=== PATIENT | female | born 1930 | race Asian ===

== ENCOUNTER 2018-08-28 18:40 | Emergency (ER) | payer OTHER ==
[~2018-08-28] VITALS: Ht 144.8 cm; Wt 64.0 kg
[2018-08-28 19:15] VITALS: BP 133/69
--- NOTE | 2018-08-28 19:15 | NUR ---
Pt ambulated to bed 7 with assistance of daughter.
--- NOTE | 2018-08-28 19:42 | NUR ---
PT TO ED WITH C/O POSTERIOR HEAD PAIN S/P FALL X 1500 TODAY. PT FAMILY MEMBER REPORTS APPROX 5 SEC LOC. PT DENIES VOMITTING, VISUAL CHANGES. NO ACTIVE BLEEDING OR OBVIOUS TRAUMA NOTED. PT IS APPROPRAITE AND ANSWERING QUESTIONS NORMALLY. PT PLACED INTO BED, PEDNING MD WILCOX.
--- NOTE | 2018-08-28 20:04 | NUR ---
Dr. Mulligan evaluating patient at bedside.
--- NOTE | 2018-08-28 20:19 | NUR ---
PT RETURN FROM CT
[2018-08-28 21:03] VITALS: BP 125/72
--- NOTE | 2018-08-28 21:04 | NUR ---
Patient discharged with v/s stable. Written and verbal after care instructions given and explained. Patient alert, oriented and verbalized understanding of instructions. Ambulatory with steady gait. All questions addressed prior to discharge. ID band removed. Patient advised to follow up with PMD. Rx of Motrin 400mg given. Patient educated on indication of medication including possible reaction and side effects. Opportunity to ask questions provided and answered.
== END 2018-08-28 21:04 | disposition home or self-care (01) ==
LOC: MED 18:40
DX: S00.03XA Contusion of scalp, initial encounter (principal); I10 Essential (primary) hypertension; W19.XXXA Unspecified fall, initial encounter; Y93.89 Activity, other specified; Y92.89 Other specified places as the place of occurrence of the external cause; Y99.8 Other external cause status
CPT/HCPCS: 70450; 72125; 99284

== ENCOUNTER 2018-09-25 13:46 | Inpatient (IN) | payer OTHER ==
[~2018-09-25] VITALS: Ht 144.8 cm; Wt 62.1 kg
[2018-09-25 14:14] VITALS: BP 130/76
--- NOTE | 2018-09-25 14:45 | NUR ---
PT AMB TO BED 4
--- NOTE | 2018-09-25 14:51 | NUR ---
Note undone in EDM - 09/25/18 at 1741 by [facility] 88/F BIB DAUGHTER IN LAW C/O GENERALIZED WEAKNESS X 2 MONTHS WITH CONSTIPATION & MID ABD PAIN X 1 MONTH AND NAUSEA.PMH: BLIND IN RIGHT EYE. PATIENT POSITIONED FOR COMFORT; HOB ELEVATED; BEDRAILS UP X1; BED DOWN. ER MADE AWARE OF PT STATUS.
--- NOTE | 2018-09-25 14:51 | NUR ---
88/F BIB DAUGHTER IN LAW C/O GENERALIZED WEAKNESS, MOOD CHANGES X 2 MONTHS WITH CONSTIPATION & MID ABD PAIN X 1 MONTH AND NAUSEA.PMH: HTN,BLIND IN LEFT EYE, [place], HYSTERECTOMY. PATIENT POSITIONED FOR COMFORT; HOB ELEVATED; BEDRAILS UP X1; BED DOWN. JOSE DUENAS MADE AWARE OF PT STATUS. Addendum: 09/25/18 at 1744 by [facility] PT LIVES IN [facility] IN [place].
[2018-09-25] MEDS ORDERED: LACTATED RINGERS 1,000 ML IV ONE (15:00)
--- NOTE | 2018-09-25 15:28 | NUR ---
PT TAKEN TO CT VIA GUJORDYN, ACCOMPANIED BY TRACK HOE OPERATOR.
[2018-09-25 15:31] LABS: APPEARANCE,URINE CLEAR (CLEAR); BILIRUBIN,URINE NEGATIVE (NEGATIVE); BLOOD, URINE TRACE-I (NEGATIVE); COLOR,URINE YELLOW (YELLOW); LEUKOCYTE ESTERASE ,URINE NEGATIVE (NEGATIVE); NITRITE, URINE NEGATIVE (NEGATIVE); UGLUCOSE NEGATIVE (NEGATIVE)
[2018-09-25 15:31] LABS: BASOPHILS % (AUTO) 0.6 % (0.0-2.0); EOSINOPHILS # (AUTO) 0.1 K/uL (0-0.4); EOSINOPHILS % (AUTO) 0.8 % (0.0-4.0); HEMATOCRIT 39.5 % (36-48); HEMOGLOBIN 13.4 g/dL (12.0-16.0); LYMPHOCYTES # (AUTO) 0.9 K/uL (2.5-16.5); LYMPHOCYTES % (AUTO) 14.2 % (20.5-51.1); MEAN CORPUSCULAR HEMOGLOBIN 33 pg (27-31); MEAN CORPUSCULAR HGB CONC 34 g/dL (33-37); MEAN CORPUSCULAR VOLUME 96.8 fL (80-94); MONOCYTES # (AUTO) 0.4 K/uL (0.8-1.0); MONOCYTES % (AUTO) 7.2 % (1.7-9.3); NEUTROPHILS # (AUTO) 4.7 K/uL (1.8-7.7); NEUTROPHILS % (AUTO) 77.2 % (42.2-75.2); PLATELET COUNT (AUTO) 230 K/uL (140-450); RED BLOOD CELL COUNT(AUTO) 4.08 MIL/uL (4.20-5.40); RED CELL DISTRIBUTION WIDTH 12.9 % (11.6-13.7)
[2018-09-25] MEDS ORDERED: AMLO10TA PO (15:49)
[2018-09-25] MEDS ORDERED: ORE25 PO (15:49)
[2018-09-25 16:33] LABS: ALBUMIN 3.5 g/dL (3.4-5.0); ANION GAP 9.7 (8-16); ASPARTATE AMINOTRANSFERASE 20 U/L (15-37); CARBON DIOXIDE 31.1 mmol/L (21-32); CHLORIDE 94 mmol/L (98-107); CREATININE 0.7 mg/dL (0.6-1.3); POTASSIUM 3.8 mmol/L (3.5-5.1); SODIUM SERUM 131 mmol/L (136-145); TOTAL BILIRUBIN 0.7 mg/dL (0.0-1.0); UREA NITROGEN, BLOOD 8 mg/dL (7-18)
[2018-09-25 16:48] LABS: ACETONE, SERUM NEGATIVE (NEGATIVE); AMYLASE 39 U/L (25-115); LIPASE 187 U/L (73-393); MAGNESIUM 2.3 mg/dL (1.8-2.4)
[2018-09-25 16:50] LABS: GLUCOSE 108 mg/dL (74-106)
--- NOTE | 2018-09-25 17:45 | NUR ---
DAUGHTER IN LAW; YOUNG [phone]
[2018-09-25] MEDS ORDERED: ONDANSETRON 4 MG/2 ML VIAL IM/IVP PRN (17:55)
[2018-09-25] MEDS ORDERED: ACETAMINOPHEN 325 MG TAB PO PRN (17:55)
[2018-09-25] MEDS ORDERED: HYDROcodone/APAP 7.5/325 MG 1 TAB PO PRN (17:55)
--- NOTE | 2018-09-25 17:55 | NUR ---
called electrical discharge machine operator ingrid she will call back with bed
--- NOTE | 2018-09-25 18:36 | NUR ---
Patient will be admitted to care of DR TOLEDO. Admited to MS. Will go to room 123B. Belongings list completed. Report to NAIF JOHN.
--- NOTE | 2018-09-25 18:36 | NUR ---
PT ARRIVED ON UNIT. RECEIVED REPORT FROM [facility] ER NURSE. PT IS STABLE AND AMBULATED TO THE BATH ROOM. TOOK PTS VITALS 90/66 98.0 96% ROOM AIR. 92 HR. TOOK MRSA. FAMILY AT PATIENTS BEDSIDE.
[2018-09-25 18:52] LABS: PROTHROMBIN TIME 9.4 secs (10.8-13.4)
[2018-09-25 19:03] LABS: CHOL/HDL RATIO 2.9 (1-4.5); FREE T4 (FREE THYROXINE) 1.05 ng/dL (0.76-1.46); PHOSPHORUS 3.6 mg/dL (2.5-4.9); THYROID STIMULATING HORMONE 2.35 uIU/mL (0.34-3.74)
[2018-09-25] MEDS ORDERED: BENZONATATE 100 MG CAPLF PO PRN (19:05)
--- NOTE | 2018-09-25 19:20 | NUR ---
ENDORSED ADMISSION/PT TO FIRE MANAGEMENT OFFICER NURSE. PT IS STABLE AND IN NO APPARENT DISTRESS.
--- NOTE | 2018-09-25 19:22 | NUR ---
RECEIVED REPORT FROM DAY SHIFT RN. FAMILY AT BEDSIDE. NO SIGNS OF DISTRESS ON RA. SAFETY PRECAUTIONS IN PLACE. ORIENTED PATIENT TO ROOM AND UNIT. CALL LIGHT IN REACH. WILL CONTINUE TO MONITOR.
[2018-09-25 19:30] VITALS: BP 90/66
[2018-09-25] MEDS ORDERED: ASPIRIN 81 MG TAB.CHEW PO SCH (19:30)
--- NOTE | 2018-09-25 20:35 | NUR ---
PATIENT C/O BEING COLD. ADJUSTED TEMPERATURE IN ROOM, PROVIDED BLANKET. POSITIONED PATIENT COMFORTABLY IN BED. WILL CONTINUE TO MONITOR.
[2018-09-25] MEDS ORDERED: POLYETHYLENE GLYCOL 17 GM/PKT PO SCH (21:30)
--- NOTE | 2018-09-25 22:45 | NUR ---
PATIENT STILL C/O COLD, PROVIDED ADDITIONAL BLANKET, FURTHER INCREASED TEMPERATURE IN ROOM. WILL CONTINUE TO MONITOR.
[2018-09-26] VITALS: BP 98/63
--- NOTE | 2018-09-26 | NUR ---
PATIENT SLEEPING. BED LOW. CALL LIGHT IN REACH. NO SIGNS OF DISTRESS ON RA. WILL CONTINUE TO MONITOR.
[2018-09-26] MEDS: NACL 0.9% 1,000 ML IV SCH ×2 (00:15→10:52)
--- NOTE | 2018-09-26 02:30 | NUR ---
PATIENT AMBULATED TO BATHROOM, ASSISTED PATIENT BACK TO BED, POSITIONED FOR COMFORT. NO SIGNS OF DISTRESS. SAFETY PRECAUTIONS IN PLACE.
--- NOTE | 2018-09-26 03:57 | NUR ---
PATIENT SLEEPING. PRECAUTIONS IN PLACE, NO SIGNS OF DISTRESS. WILL CONTINUE TO MONITOR.
--- NOTE | 2018-09-26 05:36 | NUR ---
PATIENT IV BECAME DISLODGED AND IS LEAKING. WILL DISCONTINUE AND INSERT NEW IV IN DIFFERENT LOCATION.
[2018-09-26 06:13] LABS: T4 (THYROXINE) 6.1 ug/dL (4.5-12.0)
--- NOTE | 2018-09-26 06:19 | NUR ---
SCDS ARRIVED, NOT APPLIED. PATIENT IS UP AND DOWN, IN AND OUT OF BED. VERY ACTIVE.
[2018-09-26 06:39] LABS: BASOPHILS % (AUTO) 0.4 % (0.0-2.0); EOSINOPHILS # (AUTO) 0.1 K/uL (0-0.4); EOSINOPHILS % (AUTO) 1.7 % (0.0-4.0); HEMATOCRIT 37.1 % (36-48); LYMPHOCYTES # (AUTO) 0.9 K/uL (2.5-16.5); LYMPHOCYTES % (AUTO) 16.8 % (20.5-51.1); MEAN CORPUSCULAR HEMOGLOBIN 34 pg (27-31); MEAN CORPUSCULAR HGB CONC 35 g/dL (33-37); MEAN CORPUSCULAR VOLUME 95.7 fL (80-94); MONOCYTES # (AUTO) 0.4 K/uL (0.8-1.0); MONOCYTES % (AUTO) 7.7 % (1.7-9.3); NEUTROPHILS # (AUTO) 4.1 K/uL (1.8-7.7); NEUTROPHILS % (AUTO) 73.4 % (42.2-75.2); PLATELET COUNT (AUTO) 210 K/uL (140-450); RED BLOOD CELL COUNT(AUTO) 3.88 MIL/uL (4.20-5.40); RED CELL DISTRIBUTION WIDTH 13.1 % (11.6-13.7); WHITE BLOOD COUNT (AUTO) 5.6 K/uL (4.8-10.8)
[2018-09-26 06:40] LABS: ANION GAP 11.7 (8-16); CARBON DIOXIDE 29.9 mmol/L (21-32); CHLORIDE 100 mmol/L (98-107); CREATININE 0.7 mg/dL (0.6-1.3); GLUCOSE 99 mg/dL (74-106); POTASSIUM 3.6 mmol/L (3.5-5.1); SODIUM SERUM 138 mmol/L (136-145); UREA NITROGEN, BLOOD 9 mg/dL (7-18)
--- NOTE | 2018-09-26 07:41 | NUR ---
ENDORSED PATIENT TO DAY SHIFT RN FOR CONTINUITY OF CARE. PATIENT STABLE, SAFETY PRECAUTIONS IN PLACE.
--- NOTE | 2018-09-26 07:42 | NUR ---
RECEIVED BEDSIDE REPORT FROM AG EQUIPMENT FIELD SERVICE TECHNICIAN NURSE FOR CONTINUITY OF CARE. PATIENT IS AOX2, SPEAKING OCCITAN ONLY. ABLE TO MAKE NEEDS KNOWN AND FOLLOWS COMMAND. DENIES PAIN AND SOB. RESPIRATION EVEN AND UNLABORED. ON RA. NO SIGNS OF DISTRESS NOTED. IV ON LFA 22G, PATENT AND INTACT, INFUSING PER MD ORDER. SKIN CLEAN AND DRY. PATIENT IS ABLE TO AMBULATE WITH ASSIST AND CONTINENT. DISCUSSED PLAN OF CARE WITH PATIENT AND PATIENT VERBALIZED OK. FALL PRECAUTION INITIALED AND SIGN POSTED. PATIENT REFUSED TO WEAR YELLOW GOWN, YELLOW SOCKS, AND SEQUENTIAL COMPRESSION SOCKS. EDUCATION PROVIDED TO PATIENT, AND PATIENT WAS INSISTED NOT WEARING THEM. INSTRUCTED PATIENT TO USE THE CALL LIGHT FOR ANY ASSISTANCE AND PATIENT WAS AWARE. BED IN LOW POSITION AND CALL LIGHT WITHIN REACH.
[2018-09-26 08:00] VITALS: BP 112/62
--- NOTE | 2018-09-26 08:29 | NUR ---
PATIENT HAS BEEN SCREENED AND CATEGORIZED MODERATE NUTRITION RISK. PATIENT WILL BE SEEN WITHIN 3-5 DAYS OF ADMISSION. 09/28/18[address]ADELE[address]
[2018-09-26] MEDS ORDERED: POLYETHYLENE GLYCOL 17 GM/PKT PO SCH (09:00)
--- NOTE | 2018-09-26 09:30 | NUR ---
PATIENT'S FAMILY MEMBERS ARE AT BEDSIDE. EDUCATED PATIENT AND FAMILY MEMBER THE IMPORTANCE OF WEARING THE SEQUENTIAL COMPRESSION SOCKS, AND CHANGE INTO YELLOW GOWN AND YELLOW NON-SLIPPING SOCKS. DAUGHTER YOUNG SPOKE TO PATIENT AND PATIENT WAS REFUSED TO WEAR ALL OF THEM.
[2018-09-26] MEDS: ASPIRIN 81 MG TAB.CHEW PO SCH (09:38)
[2018-09-26] MEDS: amLODIPine 5 MG TAB PO SCH (09:38)
[2018-09-26] MEDS: DOCUSATE SODIUM 250 MG GELCAP PO SCH (09:39)
--- NOTE | 2018-09-26 09:39 | NUR ---
ADMINISTERED MEDS PER MD ORDER, PATIENT TOLERATED WELL. FAMILY MEMBERS DION AND DIYA ARE AT BEDSIDE. EDUCATED PATIENT AND FAMILY MEMBERS ON MEDICATIONS AND MEDICATIONS SIDE EFFECTS. BOTH VERBALIZED UNDERSTANDING. PATIENT IS SITTING UP CHAIR. NO SIGNS OF DISTRESS NOTED. SAFETY MEASURES IN PLACE. INSTRUCTED PATIENT AND FAMILY MEMBERS ON USING CALL LIGHT FOR ANY ASSISTANCE AND BOTH ARE AWARE.
--- NOTE | 2018-09-26 11:14 | NUR ---
PATIENT IS WATCHING TV ON BED. NO SIGNS OF DISTRESS NOTED. REFUSED TO WEAR YELLOW SOCKS, GOWN, AND SEQUENTIAL COMPRESSION DEVICE. BED ALARM ACTIVATED. INSTRUCTED PATIENT TO USE THE CALL LIGHT FOR ANY ASSISTANCE AND PATIENT REPLIED OK. SAFETY MEASURES IN PLACE.
--- NOTE | 2018-09-26 11:44 | NUR ---
PATIENT IS TALKING TO VISITOR SOCO AT BEDSIDE. NO SIGNS OF DISTRESS NOTED.
--- NOTE | 2018-09-26 13:06 | NUR ---
PATIENT IS SITTING UP ON EDGE OF BED AND EATING LUNCH. DENIES PAIN AND SOB. NO SIGNS OF DISTRESS NOTED. INSTRUCTED PATIENT TO USE THE CALL LIGHT FOR ANY ASSISTANCE AND PATIENT REPLIED "OK".
--- NOTE | 2018-09-26 13:36 | NUR ---
LEATHER BELT SHAPER BRITTANY IS AT BEDSIDE. NO SIGNS OF DISTRESS NOTED.
--- NOTE | 2018-09-26 15:03 | NUR ---
PATIENT IS TALKING TO DAUGHTER IN LAW YOUNG AT BEDSIDE. PATIENT COMPLAINED OF SWALLOWING DISCOMFORT. NOTIFIED DR HARVEY AND DR HARVEY WAS AWARE.
--- NOTE | 2018-09-26 15:10 | NUR ---
DR AHRVEY IS AT BEDSIDE AND ASSESSING PATIENT. DAUGHTER IN LAW YOUNG IS AT BEDSIDE. NO SIGNS OF DISTRESS NOTED.
--- NOTE | 2018-09-26 15:20 | NUR ---
SPEECH THERAPIST JEN IS TALKING TO PATIENT AND DAUGHTER IN LAW YOUNG AT THIS TIME. NO SIGNS OF DISTRESS NOTED.
--- NOTE | 2018-09-26 15:56 | NUR ---
Pet Training Instructor Note: I faxed inquiry to [facility]. Per Simone from [facility] , patient's family toured facility prior hospital admission and stated they are interested in society editor placement. Simone told me they can accept patient on Saturday09/28/18, room 28B, accepting physician is , made aware.
[2018-09-26 16:00] VITALS: BP 103/58
--- NOTE | 2018-09-26 16:02 | NUR ---
S.T. BEDSIDE SWALLOW EVAL COMPLETED Pt presents with adequate oropharyngeal swallow function with no overt s/s aspiration. However, pt did demonstrate delayed coughing and c/o throat irritation approx. 5 minutes after completion of P.O. trials. Suspect possible esopheageal return/dysmotility. Recommend: 1) Continue diet as tolerated, avoiding highly acidic foods such as caffeinated beverages, citrus and tomato-based foods 2) Consider upper GI/esophagram to r/o esophageal dysmotility 3) P.O. meds as tolerated No further ST tx indicated at this time. [facility]. D/w pt, [id number], Dr. Workman, RN Maryan. Time [phone]
--- NOTE | 2018-09-26 17:24 | NUR ---
PATIENT IS SITTING UP ON THE EDGE OF BED AND EATING GRAPES. DENIES PAIN AND SOB. NO SIGNS OF DISTRESS NOTED.
--- NOTE | 2018-09-26 19:28 | NUR ---
ENDORSED PATIENT AT BEDSIDE TO INSOLE AND HEEL STIFFENER FOR CONTINUITY OF CARE. PATIENT IS IN A STABLE CONDITION.
--- NOTE | 2018-09-26 19:30 | NUR ---
RECEIVED REPORT FROM DAY SHIFT RN, PATIENT CZECH SPEAKING, ON RA, IV IN LEFT FA 22 G, INFUSING NS AT 60. PATIENT WANDERING AROUND UNIT, INSTRUCTED TO GO BACK TO ROOM, CALLED FAMILY TO ASK IF SOMEONE CAN STAY WITH HER TONIGHT, NO ONE CAN COME, ASSISTED BACK INTO BED, BED ALARM ON, WILL PROVIDE FREQ CHECKS.
--- NOTE | 2018-09-26 20:00 | NUR ---
PATIENT CONTINUING TO WANDER AROUND HALLWAYS, ASSISTED BACK INTO BED, BED ALARM ON WILL CONTINUE TO MONITOR
--- NOTE | 2018-09-26 20:30 | NUR ---
PATIENT SCREAMING AND AGITATED, WILL CALL DR FOR ORDERS
[2018-09-26] MEDS: FAMOTIDINE 20 MG TAB PO SCH (20:39)
[2018-09-26] MEDS: DOCUSATE SODIUM 100 MG GELCAP PO PRN (20:40)
--- NOTE | 2018-09-26 20:40 | NUR ---
ASKED DR MARTINES FOR ORDER FOR SEROQUEL TO HELP PATIENT BE LESS AGITATED. GAVE SEROQUEL
[2018-09-26] MEDS ORDERED: QUEtiapine FUMARATE 25 MG TAB PO SCH (21:00)
[2018-09-26] MEDS ORDERED: diphenhydrAMINE 50 MG/ML VIAL IVP PRN (21:05)
--- NOTE | 2018-09-26 23:56 | NUR ---
PATIENT RESTING IN BED, CALL LIGHT WITHIN REACH, BED ALARM ON
[2018-09-27 01:00] VITALS: BP 113/61
--- NOTE | 2018-09-27 01:33 | NUR ---
SLEEPING IN BED NO SIGNS OF DISTRESS, BED ALARM ON
[2018-09-27] MEDS: NACL 0.9% 1,000 ML IV SCH ×2 (03:11→19:51)
--- NOTE | 2018-09-27 03:14 | NUR ---
OTHER IV STILL INFUSING WILL HANG ANOTHER BAG ONCE COMPLETED
--- NOTE | 2018-09-27 05:24 | NUR ---
ASSISTED PATIENT TO RESTROOM, HELPED BACK INTO BED, BED ALARM ON
--- NOTE | 2018-09-27 07:15 | NUR ---
ENDORSED PATIENT TO DAY SHIFT NURSE, PATIENT STABLE.
--- NOTE | 2018-09-27 07:17 | NUR ---
RECEIVED BEDSIDE REPORT FROM PHARMACOLOGY TEACHER NURSE FOR CONTINUITY OF CARE. PATIENT IS SITTING UP ON THE EDGE OF BED. PATIENT IS AOX2 TO NAME AND PLACE, SPEAKING SPANISH ONLY. ABLE TO MAKE NEEDS KNOWN AND FOLLOWS COMMAND. DENIES PAIN AND SOB. RESPIRATION EVEN AND UNLABORED. ON RA. NO SIGNS OF DISTRESS NOTED. IV ON L HAND 20G, PATENT AND INTACT, INFUSING PER MD ORDER. SKIN CLEAN AND DRY. PATIENT IS ABLE TO AMBULATE WITH ASSIST AND CONTINENT. DISCUSSED PLAN OF CARE WITH PATIENT AND PATIENT VERBALIZED OK. FALL PRECAUTION INITIALED AND SIGN POSTED. PATIENT REFUSED TO WEAR YELLOW GOWN, YELLOW SOCKS, AND SEQUENTIAL COMPRESSION SOCKS. EDUCATION PROVIDED TO PATIENT, AND PATIENT WAS INSISTED NOT WEARING THEM. INSTRUCTED PATIENT TO USE THE CALL LIGHT FOR ANY ASSISTANCE AND PATIENT WAS AWARE. BED IN LOW POSITION AND CALL LIGHT WITHIN REACH.
[2018-09-27 08:00] VITALS: BP 124/61
[2018-09-27 08:12] LABS: ANION GAP 11.1 (8-16); BASOPHILS % (AUTO) 0.6 % (0.0-2.0); CARBON DIOXIDE 29.7 mmol/L (21-32); CHLORIDE 105 mmol/L (98-107); CREATININE 0.6 mg/dL (0.6-1.3); EOSINOPHILS # (AUTO) 0.1 K/uL (0-0.4); EOSINOPHILS % (AUTO) 2.3 % (0.0-4.0); GLUCOSE 96 mg/dL (74-106); HEMATOCRIT 38.2 % (36-48); HEMOGLOBIN 13.1 g/dL (12.0-16.0); LYMPHOCYTES # (AUTO) 0.9 K/uL (2.5-16.5); LYMPHOCYTES % (AUTO) 20.4 % (20.5-51.1); MEAN CORPUSCULAR HEMOGLOBIN 33 pg (27-31); MEAN CORPUSCULAR HGB CONC 34 g/dL (33-37); MEAN CORPUSCULAR VOLUME 96.4 fL (80-94); MONOCYTES # (AUTO) 0.4 K/uL (0.8-1.0); MONOCYTES % (AUTO) 8.2 % (1.7-9.3); NEUTROPHILS # (AUTO) 3.1 K/uL (1.8-7.7); NEUTROPHILS % (AUTO) 68.5 % (42.2-75.2); PLATELET COUNT (AUTO) 213 K/uL (140-450); POTASSIUM 3.8 mmol/L (3.5-5.1); RED BLOOD CELL COUNT(AUTO) 3.96 MIL/uL (4.20-5.40); RED CELL DISTRIBUTION WIDTH 13.3 % (11.6-13.7); SODIUM SERUM 142 mmol/L (136-145); UREA NITROGEN, BLOOD 7 mg/dL (7-18); WHITE BLOOD COUNT (AUTO) 4.6 K/uL (4.8-10.8)
[2018-09-27 08:15] LABS: MAGNESIUM 2.2 mg/dL (1.8-2.4); PHOSPHORUS 2.9 mg/dL (2.5-4.9)
[2018-09-27] MEDS: ASPIRIN 81 MG TAB.CHEW PO SCH (09:34)
[2018-09-27] MEDS: DOCUSATE SODIUM 250 MG GELCAP PO SCH (09:34)
[2018-09-27] MEDS: amLODIPine 5 MG TAB PO SCH (09:35)
--- NOTE | 2018-09-27 09:35 | NUR ---
PATIENT IS TALKING TO FAMILY MEMBERS MARIO AND LEELEE AT BEDSIDE. ADMINISTERED AM MEDS PER MD ORDER, PATIENT TOLERATED WELL. NO SIGNS OF DISTRESS NOTED.
[2018-09-27] MEDS ORDERED: BISACODYL 10 MG SUPP RC PRN (10:20)
[2018-09-27] MEDS ORDERED: MINERAL OIL 135 ML ENEM RC SCH (10:20)
[2018-09-27] MEDS ORDERED: PSYLLIUM 12.2 GM/PKT PO SCH (10:45)
--- NOTE | 2018-09-27 11:02 | NUR ---
PATIENT IS FEELING CONSTIPATED. NOTIFIED DR MURPHY THAT PATIENT'S LAST BM WAS ON 09/[address] MURPHY PLACED AN ONCE TIME ORDER FOR PSYLLIUM. ADMINISTERED PSYLLIUM WITH WATER, PATIENT TOLERATED WELL. PATIENT IS SITTING UP ON BED. NO SIGNS OF DISTRESS NOTED. INSTRUCTED PATIENT TO USE THE CALL LIGHT FOR ANY ASSISTANCE AND PATIENT AWARE.
--- NOTE | 2018-09-27 11:45 | NUR ---
PATIENT IS SITTING UP ON BED AND TALKING ON HER CELLPHONE. NO SIGNS OF DISTRESS NOTED.
--- NOTE | 2018-09-27 13:07 | NUR ---
PATIENT IS TAKING A NAP ON BED AT THIS TIME. NO SIGNS OF DISTRESS NOTED. BED IN LOW POSITION AND CALL LIGHT WITHIN REACH.
--- NOTE | 2018-09-27 15:31 | NUR ---
DR MURPHY IS TALKING TO PATIENT AT BEDSIDE. NO SIGNS OF DISTRESS NOTED.
[2018-09-27] MEDS ORDERED: BENZOCAINE/MENTHOL 1 LOZ MM PRN (15:40)
--- NOTE | 2018-09-27 15:49 | NUR ---
ADMINISTERED DULCOLAX FOR CONSTIPATION. PATIENT TOLERATED WELL. NO SIGNS OF DISTRESS NOTED.
[2018-09-27 16:00] VITALS: BP 133/74
--- NOTE | 2018-09-27 16:15 | NUR ---
PATIENT HAD MEDIUM BOWEL MOVEMENT AFTER DULCOLAX.
--- NOTE | 2018-09-27 17:20 | NUR ---
PATIENT IS RESTING ON BED AT THIS TIME. NO SIGNS OF DISTRESS NOTED.
[2018-09-27] MEDS ORDERED: MELATONIN 3 MG TAB PO PRN (17:45)
--- NOTE | 2018-09-27 18:45 | NUR ---
PATIENT IS TALKING TO DAUGHTER IN LAW YOUNG AT BEDSIDE. NO SIGNS OF DISTRESS NOTED.
--- NOTE | 2018-09-27 19:22 | NUR ---
ENDORSED PATIENT AT BEDSIDE TO RENAL CASE MANAGER NURSE FOR CONTINUITY OF CARE. PATIENT IS IN STABLE CONDITION.
--- NOTE | 2018-09-27 19:23 | NUR ---
RECEIVED PT IN STABLE CONDITION FROM AM NURSE. AWAKE,ALERT AND ORIENTED X304. AMBULATORY. WITH FAMILY MEMBERS AT BEDSIDE. NO C/O ANY DISCOMFORT NOR PAIN NOTED. HAS IVF INFUSING WELL ON THE LT FA G#20. CLEAR AND PATENT. PLAN OF CARE DISCUSSED WITH FAMILY /PT. VERBALIZED UNDERSTANDING. BED ON LOW POSITION. FREQUENT ROUNDS NEEDED. CALL LIGHT PLACED WITHIN REACH. PERSONAL BELONGINGS ALSO IN REACH. SIDE RAILS UP X2. WILL CONTINUE TO MONITOR.
--- NOTE | 2018-09-27 20:00 | NUR ---
PT HAS BEEN GOING BACK TO N BATHROOM AND BED. IV DISCONNECTED. DAUGHTER STILL AT BEDSIDE.
[2018-09-27] MEDS: FAMOTIDINE 20 MG TAB PO SCH (20:22)
--- NOTE | 2018-09-27 21:00 | NUR ---
DAUGHTER LEFT FEW MINUTES AGO. PT NOW BACK TO BED. WITH IVF INFUSING AGAIN ON THE LT FD g#20.
[2018-09-27 23:50] VITALS: BP 133/50
--- NOTE | 2018-09-28 00:05 | NUR ---
IV ACCESS ON THE LT HAND #20 LEAKING. DISCONTINUED. A NEW IV SITE STARTED ON THE RT HAND G#22. CLEAR AND PATENT.
--- NOTE | 2018-09-28 01:00 | NUR ---
IVF DISCONTINUED. BUT PT REFUSED TO DISCONNECT IV. IVF ON TKO AT THIS TIME.
--- NOTE | 2018-09-28 02:00 | NUR ---
PT IS ASLEEP . NO S/S OF ANY DISCOMFORT NOTED.
--- NOTE | 2018-09-28 04:30 | NUR ---
PT IS AWAKE. GOT UP TO THE BATHROOM.VOIDED. NO DISCOMFORT NOTED.
--- NOTE | 2018-09-28 06:00 | NUR ---
PT UP TO THE BATHROOM AGAIN. VOIDED WELL.
--- NOTE | 2018-09-28 07:05 | NUR ---
WILL ENDORSE PT TO AM NURSE IN STABLE CONDITION FOR CONTINUITY OF CARE
--- NOTE | 2018-09-28 07:15 | NUR ---
RECEIVED HAND OFF REPORT FROM PATTERN CHANGER AND REPAIRER NURSE. PT IS AWAKE IN BED. PT IS STABLE AND IN NO APPARENT DISTRESS. ALL SAFETY MEASURES ARE IN PLACE WILL CONTINUE TO MONITOR.
[2018-09-28 08:00] VITALS: BP 149/71
[2018-09-28] MEDS ORDERED: PSYLLIUM 12.2 GM/PKT PO SCH (09:00)
[2018-09-28] MEDS ORDERED: POLYETHYLENE GLYCOL 17 GM/PKT PO SCH (09:00)
[2018-09-28 09:20] LABS: BASOPHILS % (AUTO) 0.6 % (0.0-2.0); EOSINOPHILS # (AUTO) 0.1 K/uL (0-0.4); HEMATOCRIT 39.7 % (36-48); HEMOGLOBIN 13.6 g/dL (12.0-16.0); LYMPHOCYTES # (AUTO) 0.9 K/uL (2.5-16.5); LYMPHOCYTES % (AUTO) 16.1 % (20.5-51.1); MEAN CORPUSCULAR HEMOGLOBIN 33 pg (27-31); MEAN CORPUSCULAR HGB CONC 34 g/dL (33-37); MEAN CORPUSCULAR VOLUME 96.7 fL (80-94); MONOCYTES # (AUTO) 0.3 K/uL (0.8-1.0); MONOCYTES % (AUTO) 5.1 % (1.7-9.3); NEUTROPHILS # (AUTO) 4.4 K/uL (1.8-7.7); NEUTROPHILS % (AUTO) 76.2 % (42.2-75.2); PLATELET COUNT (AUTO) 229 K/uL (140-450); RED CELL DISTRIBUTION WIDTH 13.3 % (11.6-13.7); WHITE BLOOD COUNT (AUTO) 5.7 K/uL (4.8-10.8)
--- NOTE | 2018-09-28 09:30 | NUR ---
PT AWAKE WALKING AROUND UNIT. PT ASKING ABOUT IV. PT ASKING FOR HER FAMILY. PT IS STABLE AND IN NO APPARENT DISTRESS. ALL SAFETY MEASURES ARE IN PLACE. WILL CONTINUE TO MONITOR.
[2018-09-28] MEDS: ASPIRIN 81 MG TAB.CHEW PO SCH (09:40)
[2018-09-28] MEDS: DOCUSATE SODIUM 100 MG GELCAP PO PRN (09:40)
[2018-09-28] MEDS: DOCUSATE SODIUM 250 MG GELCAP PO SCH (09:41)
[2018-09-28] MEDS: amLODIPine 5 MG TAB PO SCH (09:41)
[2018-09-28] MEDS ORDERED: METPCK PO (09:52)
[2018-09-28] MEDS ORDERED: BENZ1LOZ93 MM (09:52)
[2018-09-28] MEDS ORDERED: BENZ100C6 PO (09:52)
[2018-09-28] MEDS ORDERED: DOCU-299 PO (09:52)
[2018-09-28] MEDS ORDERED: MELA3TAB PO (09:52)
[2018-09-28 09:54] LABS: ANION GAP 12.7 (8-16); CARBON DIOXIDE 26.8 mmol/L (21-32); CHLORIDE 102 mmol/L (98-107); CREATININE 0.7 mg/dL (0.6-1.3); GLUCOSE 154 mg/dL (74-106); POTASSIUM 3.5 mmol/L (3.5-5.1); SODIUM SERUM 138 mmol/L (136-145); UREA NITROGEN, BLOOD 8 mg/dL (7-18)
--- NOTE | 2018-09-28 11:15 | NUR ---
PT RESTING COMFORTABLY IN BED. PT IS STABLE AND APPEARS IN NO APPARENT DISTRESS. ALL SAFETY MEASURES ARE IN PLACE. WILL CONTINUE TO MONITOR.
--- NOTE | 2018-09-28 11:32 | NUR ---
PER [facility] NURSE HAILEY, PT WILL GO TO 28B, [facility] ARR[facility]ED FOR [phone] PER ANAMIKA [phone]
--- NOTE | 2018-09-28 13:30 | NUR ---
PT READY FOR TRANSPORT. IV REMOVED. IV TIP INTACT. PT HAS ALL BELONGINGS PT IS STABLE AND APPEARS IN NO APPARENT DISTRESS. FAMILY AT PT BEDSIDE.
--- NOTE | 2018-09-28 14:00 | NUR ---
CALLED AND GAVE HAND OFF REPORT TO [place] [facility]
--- NOTE | 2018-09-28 14:30 | NUR ---
TRANSPORTATION ARRIVED AND LEFT WITH PT PT WAS STABLE AND IN NO APPARENT DISTRESS. PT LEFT WILL ALL PERSONAL BELONGINGS
[2018-09-28 14:45] VITALS: BP 149/71
[2018-09-28] MEDS ORDERED: AMLO5TAB PO (14:53)
== END 2018-09-28 14:30 | DRG 391 ==
LOC: MED 13:46 → MTU 17:51 → MMU 09-27 19:00 → MTU 09-27 19:22
PROVIDERS: ADMIT General Practice; ATTEND General Practice
DX: K21.9 Gastro-esophageal reflux disease without esophagitis (principal); G93.41 Metabolic encephalopathy; E87.1 Hypo-osmolality and hyponatremia; G30.9 Alzheimer's disease, unspecified; F02.80 Dementia in other diseases classified elsewhere, unspecified severity, without behavioral disturbance, psychotic disturbance, mood disturbance, and anxiety; I10 Essential (primary) hypertension; E86.0 Dehydration; H54.62 Unqualified visual loss, left eye, normal vision right eye; F39 Unspecified mood [affective] disorder; K59.09 Other constipation; Z98.41 Cataract extraction status, right eye; Z90.710 Acquired absence of both cervix and uterus
CPT/HCPCS: 36415; 70450; 71045; 80048; 80053; 81003; 82009; 82150; 83036; 83690; 83735; 83880; 84100; 84436; 84439; 84443; 84479; 84484; 85025; 85610; 85730; 87081; 92610; 93005; 93880; 96360; 96361; 97116; 99285; J7030; J7120; Q0092

== ENCOUNTER 2018-11-24 22:50 | Emergency (ER) | payer OTHER ==
[~2018-11-24] VITALS: Ht 162.6 cm; Wt 81.6 kg
[2018-11-24 22:50] VITALS: BP 112/71
[~2018-11-24 22:50] MED LIST: AMLO5TAB PO; BENZ100C6 PO; BENZ1LOZ93 MM; DOCU-299 PO; MELA3TAB PO; METPCK PO
--- NOTE | 2018-11-24 22:50 | NUR ---
PT TRAN [facility]. TAKEN TO BED 11
--- NOTE | 2018-11-24 22:55 | NUR ---
Dr. Quiles examining patient.
[2018-11-24] MEDS ORDERED: NACL 0.9% 1,000 ML IV SCH (22:58)
[2018-11-24 23:25] LABS: BASOPHILS % (AUTO) 0.2 % (0.0-2.0); EOSINOPHILS # (AUTO) 0.2 K/uL (0-0.4); EOSINOPHILS % (AUTO) 1.3 % (0.0-4.0); HEMATOCRIT 33.3 % (36-48); LYMPHOCYTES # (AUTO) 0.6 K/uL (2.5-16.5); MEAN CORPUSCULAR HEMOGLOBIN 33 pg (27-31); MEAN CORPUSCULAR HGB CONC 33 g/dL (33-37); MONOCYTES # (AUTO) 0.6 K/uL (0.8-1.0); NEUTROPHILS # (AUTO) 10.4 K/uL (1.8-7.7); NEUTROPHILS % (AUTO) 88.3 % (42.2-75.2); PLATELET COUNT (AUTO) 204 K/uL (140-450); WHITE BLOOD COUNT (AUTO) 11.8 K/uL (4.8-10.8)
--- NOTE | 2018-11-24 23:25 | NUR ---
PT TO ED VIA EMS C/O OF BLEEDING AT STOMA SITE. NO BLEEDING AT SITE. GT FLUSHES APPROPRIATELY. SAFETY MEASURES IN PLACE. WILL CONTINUE TO MONITOR.
--- NOTE | 2018-11-24 23:30 | NUR ---
# 14 FR Urinary catheter inserted utilizing sterile technique. Immediate return of 1,000 ml DARK KONSTANTIN urine noted. Urine sample collected and sent to lab. Pt tolerated procedure WELL.
[2018-11-24 23:35] LABS: APPEARANCE,URINE CLEAR (CLEAR); BILIRUBIN,URINE NEGATIVE (NEGATIVE); BLOOD, URINE NEGATIVE (NEGATIVE); LEUKOCYTE ESTERASE ,URINE NEGATIVE (NEGATIVE); NITRITE, URINE NEGATIVE (NEGATIVE); UGLUCOSE NEGATIVE (NEGATIVE)
[2018-11-24 23:35] LABS: LYMPHOCYTES % (AUTO) 5.2 % (20.5-51.1)
[2018-11-24 23:36] LABS: ANION GAP 7.2 (8-16); CARBON DIOXIDE 34.3 mmol/L (21-32); CHLORIDE 100 mmol/L (98-107); CREATININE 0.6 mg/dL (0.6-1.3); GLUCOSE 145 mg/dL (74-106); POTASSIUM 4.5 mmol/L (3.5-5.1); SODIUM SERUM 137 mmol/L (136-145); UREA NITROGEN, BLOOD 21 mg/dL (7-18)
[2018-11-24 23:45] LABS: RBC,URINE 0-5 /HPF (0-5); WBC,URINE 0-5 /HPF (0-5)
[2018-11-24] MEDS ORDERED: MORPHINE SULFATE 2 MG/ML SYR IVP ONE (23:45)
[2018-11-24 23:46] LABS: YEAST,URINE Many /HPF (None Seen)
[2018-11-24 23:51] LABS: ALBUMIN 2.1 g/dL (3.4-5.0); ASPARTATE AMINOTRANSFERASE 43 U/L (15-37); TOTAL BILIRUBIN 0.8 mg/dL (0.0-1.0)
[2018-11-24 23:52] LABS: COLOR,URINE AMBER (YELLOW)
--- NOTE | 2018-11-25 00:07 | NUR ---
PT TAKEN TO CT
--- NOTE | 2018-11-25 00:16 | NUR ---
RETURN FROM CT VIA [facility].
[2018-11-25] MEDS ORDERED: NUTR-813 PO (00:19)
[2018-11-25] MEDS ORDERED: DONE5TAB6 PO (00:19)
[2018-11-25] MEDS ORDERED: FAMO-90 PO (00:19)
[2018-11-25] MEDS ORDERED: LACTULOSE 20 GM/30 ML UDC GT ONE (01:15)
--- NOTE | 2018-11-25 01:30 | NUR ---
TRANSPORT BACK TO FACILITY ETA 0500 THIS AM VIA [facility]. ER MD NOTIFIED.
--- NOTE | 2018-11-25 03:30 | NUR ---
PT MOVED TO ER BED 1
--- NOTE | 2018-11-25 03:47 | NUR ---
PT TOLERATED ENEMA
--- NOTE | 2018-11-25 04:22 | NUR ---
PT HAD MEDIUM SOFT BM. PT RECTUM IS BLEEDING, POSSIBLE SMALL TEAR. ERMD NOTIFIED.
--- NOTE | 2018-11-25 05:50 | NUR ---
[facility] AT BEDSIDE
[2018-11-25 05:55] VITALS: BP 160/86
--- NOTE | 2018-11-25 05:58 | NUR ---
PT TAKEN BY [facility] TO [facility]
--- NOTE | 2018-11-25 06:04 | NUR ---
Gave report to ANGELA Rodriguez [employer].
--- NOTE | 2018-11-25 06:04 | NUR ---
Patient discharged with v/s stable. Written and verbal after care instructions given and explained to transport team. Ambulance Transport to retirement. All questions addressed prior to discharge. ID band removed. Rx of lactulose given. Pt left via gurney with .
== END 2018-11-25 05:58 | disposition home or self-care (01) ==
LOC: MED 22:50
DX: K94.23 Gastrostomy malfunction (principal); K56.41 Fecal impaction; I10 Essential (primary) hypertension; G30.9 Alzheimer's disease, unspecified; F02.80 Dementia in other diseases classified elsewhere, unspecified severity, without behavioral disturbance, psychotic disturbance, mood disturbance, and anxiety; G93.41 Metabolic encephalopathy; Z86.73 Personal history of transient ischemic attack (TIA), and cerebral infarction without residual deficits; Z79.899 Other long term (current) drug therapy
CPT/HCPCS: 36415; 71045; 74176; 80053; 81001; 83605; 85025; 87040; 87086; 93005; 96374; 99284; J2270; J7030; Q0092

== ENCOUNTER 2018-12-21 21:24 | Inpatient (IN) | payer OTHER ==
[~2018-12-21] VITALS: Ht 157.5 cm; Wt 71.7 kg
[~2018-12-21 21:24] MED LIST changes: +DONE5TAB6 PO; +FAMO-90 PO; +NUTR-813 PO
--- NOTE | 2018-12-21 21:24 | NUR ---
PT TAKEN TO BED #2
[2018-12-21 21:26] VITALS: BP 107/61
--- NOTE | 2018-12-21 21:30 | NUR ---
88/F BIBA FROM [facility], WITH EMS COMPLAINT OF GTUBE MALFUNCTION. PER EMS, PT SPO2 75%. PT ARRIVES TO ED, APHASIC AND [facility]CS 7 ([id number]) AT BASELINE, BEDBOUND, SKIN NORMAL LOOSE DRY, PT MOANING INTERMITTENTLY, SPO2 94% ON O2 5L NC, RR 30 EVEN AND SLIGHTLY LABORED, BP 110/52, HR 122 EVEN AND REGULAR, SINUS TACH ON MONITOR. PT WITH COUGH. LUNG SOUNDS CLEAR BL. GTUBE NOTED, BS ACTIVE X4, ABD SOFT ROUND NONTENDER HX ALZHEIMER'S DEMENTIA, DVA, HTN, METABOLIC ENCEPHALOPATHY, GTUBE
--- NOTE | 2018-12-21 21:59 | NUR ---
UNABLE TO FLUSH PT'S GTUBE. DR BEARD AT BEDSIDE FOR UNSUCCESSFUL GTUBE REMOVAL. ABLE TO REMOVE 1ML FLUID FROM GTUBE BALLOON TUBE. DR BEARD UNABLE TO REMOVE GTUBE DUE TO RESISTANCE. 18F GTUBE KIT WAS OPENED BUT NOT USED AT THIS TIME.
[2018-12-21 22:21] LABS: BASOPHILS % (AUTO) 0.1 % (0.0-2.0); EOSINOPHILS % (AUTO) 0.2 % (0.0-4.0); HEMOGLOBIN 10.2 g/dL (12.0-16.0); LYMPHOCYTES # (AUTO) 0.6 K/uL (2.5-16.5); LYMPHOCYTES % (AUTO) 6.6 % (20.5-51.1); MEAN CORPUSCULAR HEMOGLOBIN 32 pg (27-31); MEAN CORPUSCULAR HGB CONC 33 g/dL (33-37); MEAN CORPUSCULAR VOLUME 97.8 fL (80-94); MONOCYTES # (AUTO) 0.4 K/uL (0.8-1.0); MONOCYTES % (AUTO) 4.5 % (1.7-9.3); NEUTROPHILS # (AUTO) 7.7 K/uL (1.8-7.7); NEUTROPHILS % (AUTO) 88.6 % (42.2-75.2); PLATELET COUNT (AUTO) 208 K/uL (140-450); RED BLOOD CELL COUNT(AUTO) 3.17 MIL/uL (4.20-5.40); RED CELL DISTRIBUTION WIDTH 14.8 % (11.6-13.7); WHITE BLOOD COUNT (AUTO) 8.7 K/uL (4.8-10.8)
[2018-12-21 22:34] LABS: ANION GAP 7.5 (8-16); CARBON DIOXIDE 33.5 mmol/L (21-32); CHLORIDE 95 mmol/L (98-107); CREATININE 1.3 mg/dL (0.6-1.3); GLUCOSE 143 mg/dL (74-106); SODIUM SERUM 132 mmol/L (136-145)
[2018-12-21 22:37] LABS: UREA NITROGEN, BLOOD 69 mg/dL (7-18)
[2018-12-21] MEDS ORDERED: cefTRIAXone 1,000 MG VIAL ONE (22:56)
[2018-12-21] MEDS ORDERED: NACL 0.9% 1,000 ML IV SCH (23:16)
[2018-12-21] MEDS ORDERED: DOCUSATE SODIUM 100 MG GELCAP PO PRN (23:20)
[2018-12-21] MEDS ORDERED: ACETAMINOPHEN 325 MG TAB PO PRN (23:20)
[2018-12-21] MEDS ORDERED: ONDANSETRON 4 MG/2 ML VIAL IM/IVP PRN (23:20)
--- NOTE | 2018-12-21 23:30 | NUR ---
PT LAYING IN BED, SPO2 94% ON O2 5L NC, RR 28 EVEN AND SLIGHTLY LABORED, PT INTERMITTENTLY MOANING AND REMOVING O2 NC DESPITE EDUCATION BUT ABLE TO PLACE O2 NC BACK. ALL NEEDS MET.
--- NOTE | 2018-12-21 23:40 | NUR ---
Patient will be admitted to care of DR TOLEDO. Admited to TELE. Will go to room 123B. Belongings list completed. Report to YANICK JOHN AT BEDSIDE.
[2018-12-21] MEDS ORDERED: AMLO2.5T PO (23:42)
[2018-12-21] MEDS ORDERED: ACET-2619 PO (23:50)
[2018-12-21 23:55] LABS: MAGNESIUM 3.2 mg/dL (1.8-2.4); PHOSPHORUS 4.2 mg/dL (2.5-4.9); THYROID STIMULATING HORMONE 2.17 uIU/mL (0.34-3.74)
[2018-12-22] VITALS (15 sets, daily range): BP systolic 63–129; BP diastolic 40–84
--- NOTE | 2018-12-22 | NUR ---
RECEIVED PT FROM ER NURSE. PT CAME IN GURNEY AND SLEEPING. NOT ABLE TO AMBULATE. BOOKER CATHETER ALREADY IN PLACE. O2 5LPM VIA NC. PRESSURE ULCER NOTED ON SACRAL AREA, PHOTO TAKEN, ACTIVATED WOUND BED, FALL PRECAUTION IN PLACE. DX GTUBE MALFUNCTION, HX DEMENTIA, HTN, PNA, GERD. DRAINAGE ON GTUBE SITE, CLEAN AND CHANGED DRESSING. BED IN LOW POSITION. CALL LIGHT WITHIN REACH. WILL CONTINUE TO MONITOR.
[2018-12-22] MEDS ORDERED: PIPERACILLIN/TAZOBACTAM 2.25 GM VIAL IV ONE ×2 (00:45→05:58)
[2018-12-22] MEDS: LORazepam 2 MG/ML VIAL IM/IVP PRN (00:55)
--- NOTE | 2018-12-22 00:55 | NUR ---
GIVEN ZOSYN MD ORDERED. PT AGITATING, GIVEN ATIVAN MD ORDERED. WILL CONTINUE TO MONITOR.
[2018-12-22] MEDS ORDERED: PIPERACILLIN/TAZOBACTAM 2.25 GM in DEXTROSE 5% 50 ML IV SCH ×2 (01:00→06:00)
--- NOTE | 2018-12-22 03:00 | NUR ---
PT GOING RADIOLOGY FOR HEAD CT SCAN. ASSIST TRANSFERRING PT.
[2018-12-22] MEDS ORDERED: BISACODYL 5 MG TABEC PO PRN (03:15)
--- NOTE | 2018-12-22 04:30 | NUR ---
UNABLE TO OBTAINED ABG, I TRIED COUPLE TIMES, I HAVE FLUSH, BUT THE BLOOD STOP, AND THE RT , STACY TRIED TOO WITHOUT RESULT. DR QUINONES WAS NOTIFIED
[2018-12-22 05:48] LABS: BASOPHILS % (AUTO) 0.5 % (0.0-2.0); EOSINOPHILS # (AUTO) 0.1 K/uL (0-0.4); EOSINOPHILS % (AUTO) 1.3 % (0.0-4.0); HEMATOCRIT 29.1 % (36-48); HEMOGLOBIN 9.8 g/dL (12.0-16.0); LYMPHOCYTES # (AUTO) 0.4 K/uL (2.5-16.5); MEAN CORPUSCULAR HEMOGLOBIN 33 pg (27-31); MEAN CORPUSCULAR HGB CONC 34 g/dL (33-37); MEAN CORPUSCULAR VOLUME 97.6 fL (80-94); MONOCYTES # (AUTO) 0.3 K/uL (0.8-1.0); MONOCYTES % (AUTO) 3.9 % (1.7-9.3); NEUTROPHILS % (AUTO) 89.3 % (42.2-75.2); PLATELET COUNT (AUTO) 194 K/uL (140-450); RED BLOOD CELL COUNT(AUTO) 2.98 MIL/uL (4.20-5.40); RED CELL DISTRIBUTION WIDTH 14.6 % (11.6-13.7); WHITE BLOOD COUNT (AUTO) 8.9 K/uL (4.8-10.8)
--- NOTE | 2018-12-22 05:55 | NUR ---
GIVEN ZOSYN MD ORDERED. WILL CONTINUE TO MONITOR.
--- NOTE | 2018-12-22 06:00 | NUR ---
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 REPORTED TO DR. QUINONES.
[2018-12-22 06:15] LABS: ANION GAP 10.9 (8-16); CARBON DIOXIDE 33.1 mmol/L (21-32); CHLORIDE 94 mmol/L (98-107); CREATININE 1.3 mg/dL (0.6-1.3); GLUCOSE 151 mg/dL (74-106); SODIUM SERUM 134 mmol/L (136-145)
[2018-12-22 06:22] LABS: CHOL/HDL RATIO 2.7 (1-4.5); PHOSPHORUS 4.3 mg/dL (2.5-4.9)
[2018-12-22 06:37] LABS: UREA NITROGEN, BLOOD 70 mg/dL (7-18)
--- NOTE | 2018-12-22 06:45 | NUR ---
RECEIVED CALL FROM LAB. BUN 70, REPORTED TO DR. QUINONES.
[2018-12-22] MEDS: ALBUTEROL SULFATE/IPRATROPIU 3 ML SOL IH SCH ×3 (07:18→19:18)
--- NOTE | 2018-12-22 07:25 | NUR ---
ENDORSED PT TO DAY SHIFT NURSE. PT IN STABLE CONDITION.
--- NOTE | 2018-12-22 07:30 | NUR ---
RECEIVED REPORT FROM JUICE STANDARDIZER NURSE. PT IN STABLE CONDITION
--- NOTE | 2018-12-22 08:40 | NUR ---
PATIENT HAS BEEN SCREENED AND CATEGORIZED HIGH NUTRITION RISK. PATIENT WILL BE SEEN WITHIN 1-2 DAYS OF ADMISSION. 12/22/18-12/23/[address]
[2018-12-22] MEDS ORDERED: SODIUM FERRIC GLUCONATE 125 MG in NACL 0.9% 100 ML IV SCH (09:00)
[2018-12-22] MEDS: LACTOBACILLUS RHAMNOSUS GG 1 EACH CAP PO SCH (09:00)
[2018-12-22] MEDS: FAMOTIDINE 20 MG TAB PO SCH (09:00)
[2018-12-22] MEDS: NYSTATIN 500 MU/5 ML UDC PO SCH ×4 (09:00→21:08)
[2018-12-22] MEDS: DONEPEZIL 10 MG TAB PO SCH (09:00)
[2018-12-22] MEDS: SODIUM FERRIC GLUCONATE 125 MG in NACL 0.9% 100 ML IV SCH (09:13)
--- NOTE | 2018-12-22 09:21 | NUR ---
WOUND CARE EVALUATION NOTE: REASON FOR EVALUATION: PERIANAL WOUND SKIN ASSESSMENT DONE WITH THIS 88 Y/O FEMALE PT ADMITTED FROM HOME TO [facility] WITH INITIAL DX OF GT MALFUNCTION. PAST MEDICAL HX INCLUDES HTN, ALZHEIMER AND CONSTIPATION. ALL ABOVE INFORMATION OBTAINED FROM ADMISSION H&P. PT IS ASLEEP. SKIN IS WARM AND DRY, BLE NO HAIR GROWTH, NO EDEMA TO BILATERAL LOWER LEGS. BILATERAL DORSAL PEDAL PULSES PRESENT AND NORMAL, CAPILLARY RE-FILLED, 2 SEC. PLAN OF CARE DISCUSSED WITH PRIMARY RN AND DR. JUNG WITH CLARIFICATION: SACRALCOCCYX SKIN CLEAN AND INTACT NO PRESSURE ULCER INJURY. INTEGUMENTARY: -MID ABDOMINAL OLD HEALED SURGICAL SCAR -GT SITE MILLIE STOMA SKIN INTACT DRY AND CLEAN -SACRALCOCCYX SKIN CLEAN AND INTACT NO PRESSURE ULCER INJURY -INCONTINENT ASSOCIATE DERMATITIS TO PERIANAL WITH MULTIPLE SKIN EROSIONS AND LARGEST 1.5X2X0.1 CM WOUND BED IS WHITE AND MOIST, MILLIE -WOUND SKIN REDNESS -BILATERAL HEELS BLANCHABLE REDNESS RECOMMENDATIONS: -CLEANSE PERIANAL WITH SOAP AND WATER, PAT DRY, APPLY Z GUARD BID AND PRN WITH SOILING. -APPLY OPTIFOAM TO SACRALCOCCYX QD AND PRN SOILING PREVENTION -APPLY HEEL RAISER TO RIGHT HEEL AT ALL TIMES -OFFLOAD BILATERAL HEELS BY PLACING PILLOWS UNDER CALVES UNLESS OTHERWISE CONTRAINDICATED -PRESSURE REDISTRIBUTIONS SURFACE THERAPY -TURN AND REPOSITION Q2H, OFFLOAD SACRALCOCCYX BY TURNING RIGHT AND LEFT -CONTINUE TO FOLLOW RD RECOMMENDATIONS ALL ABOVE RECOMMENDATIONS DISCUSSED WITH PRIMARY RN WILL FOLLOW UP PT Q7-10 DAYS. PLEASE CONTACT WOUND CARE NURSE FOR ANY QUESTION AND CHANGE OF WOUND CONDITION.
--- NOTE | 2018-12-22 09:55 | NUR ---
Informed by radiation monitor that pt's HR 130-135/min on tele. Assessed pt, pt in bed, moaning, respirations even & nonlabored on O2 @ 6Lpm via mask. Axillary temp = 100.4�F, no shivering noted. Cooling measures initiated: room temp decreased to 76�F, blanket removed. Pt unable to take meds po d/t ALOC & unable to follow commands, GT malfunctioning as well. Dr Alcantar notified. Per physician he will input order for acetaminophen supp.
[2018-12-22] MEDS ORDERED: ACETAMINOPHEN 650 MG SUPP RC PRN (10:00)
--- NOTE | 2018-12-22 10:27 | NUR ---
ADMINISTERED SUPPOSITORY TYLENOL FOR 100.4 TEMPERATURE. UTILIZED OTHER COOLING MEASURES WELL, PLACED DAMP WASHCLOTH TO FOREHEAD. WILL CONTINUE TO ASSESS PATIENTS TEMPERATURE.
--- NOTE | 2018-12-22 10:55 | NUR ---
Pt HR 110-120/min sinus tach on tele. Temp=99.2�F. Respirations even & nonlabored with O2 @ 6Lpm via mask. Left wrist IV intact with ongoing NS @ 60ml/hr. Call light within reach.
--- NOTE | 2018-12-22 11:50 | NUR ---
Son Hardik arrived to visit pt. Dr Alcantar notified that family is at bedside.
--- NOTE | 2018-12-22 12:05 | NUR ---
Dr Alcantar at bedside speaking with son Hardik with [id number] on speakerphone. Pt resting in bed, no signs of distress. Call light within reach. O2 mask in place.
[2018-12-22] MEDS: PIPER/TAZO 2.25GM/D5W PREMIX 50 ML IV SCH ×3 (12:33→23:03)
--- NOTE | 2018-12-22 12:52 | NUR ---
12/22/[address] INITIAL ASSESSMENT COMPLETED PLEASE REFER TO NUTRITION ASSESSMENT UNDER CARE ACTIVITY FOR ESTIMATED NUTRITIONAL NEEDS. 1. WHEN MEDICALLY STABLE CONSIDER JEVITY 1.2 AT 60 ML/HR X 24 HOURS WITH PROSOURCE 1/DAY -THIS WILL PROVIDE 1788 KCAL, AND 95 GM OF PROTEIN, WHICH MEETS 100% OF ESTIMATED NUTRITION NEEDS 2. RECOMMEND FREE WATER FLUSH 100 ML Q4H 3. RECOMMEND VITAMIN C [address] TO FOLLOW-UP 2-3 DAYS, HIGH RISK MADELEINE CAMACHO RD
[2018-12-22] MEDS: NACL 0.9% IRR 250 ML BOTTLE IR SCH (13:00)
[2018-12-22] MEDS: Z-GUARD PASTE TP SCH ×2 (13:00→16:00)
[2018-12-22] MEDS ORDERED: LORazepam 2 MG/ML VIAL IM/IVP SCH (13:30)
--- NOTE | 2018-12-22 14:15 | NUR ---
Telephone consent obtained from Hardik Jarvis (son) for IV contrast administration & central line insertion with 2-nurse verification.
--- NOTE | 2018-12-22 14:20 | NUR ---
TRANSFERRED PT ON NON REBREATHER TO ICU 5. PT IS BACK ON SIMPLE MASK 7 L/M. NO RESP DISTRESS DURING TRANSFER AND AT ICU 5.
--- NOTE | 2018-12-22 14:20 | NUR ---
Pt transferred to ICU via hospital bed. Report given to [facility] ICU charge nurse.
--- NOTE | 2018-12-22 14:27 | NUR ---
PATIENT TRANSFERRED FROM TELEMETRY PER BED ACCOMPANIED BY RT AND RN. IV NS INFUSING ON LEFT WRIST SITE AT 60ML/H. PATIENT LETHARGIC AND DISORIENTED. ICE CREAM FREEZER HELPER SHOWS NSR WITH HR 99 BPM. TACHYPNEIC WITH LABORED BREATHING, RHONCHI, AND CRACKLES IN ALL LOBES. PATIENT CAME INTO ICU ON 6L OF OXYGEN VIA FACE MASK AND WITH BOOKER CATHETER IN PLACE. ABDOMINAL BINDER IN PLACE TO PREVENT PATIENT FROM PULLING OUT HER G TUBE. FOAM DRESSING OVER SACRAL AREA - DRESSING DRY AND INTACT.
--- NOTE | 2018-12-22 14:30 | NUR ---
DR BARAJAS ARRIVED TO ICU FOR RIGHT IJ PLACEMENT OF CENTRAL LINE.
--- NOTE | 2018-12-22 14:35 | NUR ---
REPOSITIONED. SMALL AMT. OF LIQUID BROWNISH STOOLS. PERINEAL CARE DONE.
--- NOTE | 2018-12-22 14:40 | NUR ---
TIME OUT DONE PRIOR TO INSERTION OF CENTRAL LINE.
--- NOTE | 2018-12-22 15:20 | NUR ---
RIGHT IJ CENTRAL LINE INSERTION SUCCESSFULLY COMPLETED BY DR. BARAJAS
--- NOTE | 2018-12-22 15:30 | NUR ---
COUGHING BUT UNABLE TO EXPECTORATE, SUCTIONED NASALLY LARGE AMT. OF THICK YELLOWISH SECRETIONS.
--- NOTE | 2018-12-22 16:00 | NUR ---
PER DR. BARAJAS, WILL STASRT NEW IVF WITH NEW IV TUBING WHEN PLACEMENT OF IJ TLC IS VERIFIED.
--- NOTE | 2018-12-22 16:00 | NUR ---
INCONTINENT OF SMALL AMT. OF LIQUID WATERY BROWNISH STOOLS. SPECIMEN SENT TO LAB FOR OB. Z GUARD APPLIED TO PERINEAL/RECTAL AREA INCONTINENT DERMATITIS.
--- NOTE | 2018-12-22 17:00 | NUR ---
PER LAB, NEEDS TO RECOLLECT SPUTUM SPECIMEN. SUCTIONED PT, UNABLE TO OBTAIN SPUTUM FOR C/S.
--- NOTE | 2018-12-22 17:15 | NUR ---
BOOKER CATH. IRRIGATED WITH 50 ML OF STERILE SALINE. URINE SL CLOUDY WITH WHITISH SEDIMENTS. DR. BARAJAS AWARE.
--- NOTE | 2018-12-22 18:00 | NUR ---
RT IJ TLC PLACEMENT VERIFIED. OK TO USE. IV D5 0.9 NS STARTED AT 75 ML/HR VIA RT IJ TLC.
[2018-12-22] MEDS: DEXT 5% /NACL 0.9% 1,000 ML IV SCH (18:15)
--- NOTE | 2018-12-22 18:15 | NUR ---
BPS IN THE 60'S PT IS ASLEEP. DIFFICULT TO AROUSE.
--- NOTE | 2018-12-22 18:20 | NUR ---
DR. RODRIGUEZ AT BEDSIDE TO ASSESS PT.
--- NOTE | 2018-12-22 18:37 | NUR ---
REPOSITIONED SUPINE. PT RESPONDED BY MOANING. BP 100/62. DRS. RODRIGUEZ AND KARL AT BEDSIDE. WILL HOLD LEVOPHED FOR NOW.
--- NOTE | 2018-12-22 19:16 | NUR ---
* ST D/C NOTE * Clinician attempting to complete Bedside dysphagia and oral mechanism exams at this time. Pt however exhibiting RAISA and was moved from TL to ICU. MDs Dr. Vazquez and Dr. Navarrete present at pt's bedside, w/Nsg Garfield and [place] reporting pt not medically stable at this time. Vladg Juana stating pt has g-tube in place as well. Thus, no further ST follow up recommended at this time. MD may request for another swallow eval once pt's condition stabilizes. PVE
[2018-12-22] MEDS ORDERED: SCOPOLAMINE 1.5 MG/72 HR PATCH TD SCH (19:35)
--- NOTE | 2018-12-22 19:36 | NUR ---
RCV'D PT ON 6 L SIMPLE MASK. ABG DRAWN ON ROOM AIR PER MD REQUEST. RESULTS GIVEN TO MD VERBALLY AND POSTED ON [employer] Window. CHANGED PT TO OXIMIZER. WILL CONTINUE TO MONITOR. Addendum: 12/22/18 at 2308 by Julisa Merlos RT 6 L OXIMIZER
--- NOTE | 2018-12-22 19:40 | NUR ---
RECEIVED BEDSIDE REPORT FROM MORNING SHIFT RNVICKY. AAOX1,APPEARS TO RESPOND TO NAME. TEMP 97.3, HR 101, BP 139/90, RESP 23, SATING 98%. LUNG SOUNDS COARSE/CRACKLES ON UPPER BILATERAL LOBES, DIMINSHED ON LOWER BASES. ON NASAL OXIMIZER AT 6L/MIN. SR ON CARDIC MONITOR. PT IS WEARING ABDOMINAL BINDER, GTUBE IN PLACE PT IS NPO EXCEPT MEDS AT THIS TIME. BOOKER IN PLACE, URINE IS LIGHT KONSTANTIN IN COLOR. PT HAS RIGHT IJ CENTRAL LINE INFUSING D5NS AT 75CC/HR. PT HAS PURPLE TO REDNESS ON COCCYX AND INCONTINENT DERMATITIS. PT HAS HEEL PROTECTORS ON BILATERAL LEGS. HOB ELEVATED ABOVE 30 DEG. SOFT RESTRAINT ON RIGHT WRIST ONLY.
--- NOTE | 2018-12-22 21:00 | NUR ---
SCOPOLAMINE TRANSDERMAL PATCH NOT AVAILABLE AT THIS TIME, AUTOCAD DRAFTSMAN MADE AWARE/UNABLE TO LOCATED MEDICATION. ORAL MYCOSTATIN APPLIED TO PATIENT AT THIS TIME.
--- NOTE | 2018-12-22 22:49 | NUR ---
EQUIPMENT OPERATOR/LABORER ABBY CONTACTED [facility] [place] CURRENT BOOKER CATHETER WAS PUT IN ON 12/20/2018. DR. RODRIGUEZ MADE AWARE, STATED OK TO KEEP CURRENT BOOKER IN PLACE.
--- NOTE | 2018-12-22 23:08 | NUR ---
DECREASED PT TO 4 L OXIMIZER. PT IS ASLEEP COMFORTABLY. NO SOB OR DISTRESS. RN ABBY AT BEDSIDE. RN AWARE OF O2 CHANGE. WILL CONTINUE TO MONITOR.
[2018-12-23] VITALS (13 sets, daily range): BP systolic 91–160; BP diastolic 43–93
[2018-12-23] MEDS: NACL 0.9% IRR 250 ML BOTTLE IR SCH ×2 (01:36→13:38)
[2018-12-23] MEDS: LORazepam 2 MG/ML VIAL IM/IVP PRN ×3 (02:13→20:27)
--- NOTE | 2018-12-23 02:16 | NUR ---
PT MOANING APPEARS TO BE MORE AGITATED/RESTLESS WHILE IN BED. SATING 94%, HR 112, RR 23, BP 127/60. ATIVAN ADMINISTERED AT THIS TIME.
[2018-12-23] MEDS: DEXT 5% /NACL 0.9% 1,000 ML IV SCH (03:27)
--- NOTE | 2018-12-23 04:23 | NUR ---
AM CARES PROVIDED TO PATIENT, SMALL BM FORMED/BROWN IN COLOR. ON 4LPM NASAL OXIMIZER.
--- NOTE | 2018-12-23 05:20 | NUR ---
URINE SPECIMEN SENT TO LAB ORDERED.PT SUCTIONED; UNABLE TO OBTAIN SPECIMEN FOR SPUTUM CULTURE
[2018-12-23 05:46] LABS: HEMATOCRIT 27.1 % (36-48); HEMOGLOBIN 8.8 g/dL (12.0-16.0); MEAN CORPUSCULAR HEMOGLOBIN 32 pg (27-31); MEAN CORPUSCULAR HGB CONC 32 g/dL (33-37); MEAN CORPUSCULAR VOLUME 98.2 fL (80-94); PLATELET COUNT (AUTO) 168 K/uL (140-450); RED BLOOD CELL COUNT(AUTO) 2.76 MIL/uL (4.20-5.40); RED CELL DISTRIBUTION WIDTH 14.3 % (11.6-13.7); WHITE BLOOD COUNT (AUTO) 13.4 K/uL (4.8-10.8)
--- NOTE | 2018-12-23 06:00 | NUR ---
CALLED DR. RODRIGUEZ INFORMED OF RENEWAL FOR SOFT RESTRAINT RIGHT WRIST.
[2018-12-23 06:11] LABS: ALBUMIN 1.5 g/dL (3.4-5.0); ANION GAP 10.2 (8-16); ASPARTATE AMINOTRANSFERASE 22 U/L (15-37); CARBON DIOXIDE 33.4 mmol/L (21-32); CHLORIDE 103 mmol/L (98-107); CREATININE 1.1 mg/dL (0.6-1.3); GLUCOSE 182 mg/dL (74-106); MAGNESIUM 3.1 mg/dL (1.8-2.4); PHOSPHORUS 3.3 mg/dL (2.5-4.9); SODIUM SERUM 144 mmol/L (136-145); TOTAL BILIRUBIN 1.4 mg/dL (0.0-1.0); UREA NITROGEN, BLOOD 58 mg/dL (7-18)
[2018-12-23 06:13] LABS: IRON, SERUM 17 ug/dl (50-175)
[2018-12-23] MEDS: PIPER/TAZO 2.25GM/D5W PREMIX 50 ML IV SCH ×4 (06:13→23:13)
[2018-12-23 06:22] LABS: POTASSIUM 2.6 mmol/L (3.5-5.1)
[2018-12-23 06:22] LABS: T4 (THYROXINE) 5.1 ug/dL (4.5-12.0)
[2018-12-23 06:26] LABS: BILIRUBIN,URINE NEGATIVE (NEGATIVE); BLOOD, URINE 3+ (NEGATIVE); COLOR,URINE YELLOW (YELLOW); LEUKOCYTE ESTERASE ,URINE 3+ (NEGATIVE); NITRITE, URINE NEGATIVE (NEGATIVE); UGLUCOSE NEGATIVE (NEGATIVE)
[2018-12-23 06:42] LABS: LYMPHOCYTES % (MANUAL) 4 % (20-46)
[2018-12-23 07:02] LABS: APPEARANCE,URINE HAZY (CLEAR)
[2018-12-23 07:03] LABS: RBC,URINE 0-5 /HPF (0-5); URINE AMORPHOUS URATE 1+ /HPF (None Seen); WBC,URINE 20-60 /HPF (0-5)
--- NOTE | 2018-12-23 07:06 | NUR ---
URINE OUTPUT OF 500ML, DARK KONSTANTIN IN COLOR.
[2018-12-23] MEDS ORDERED: KCL 20 MEQ/WATER INJ PREMIX 200 ML IV SCH (07:15)
[2018-12-23] MEDS: ALBUTEROL SULFATE/IPRATROPIU 3 ML SOL IH SCH ×3 (07:15→19:03)
--- NOTE | 2018-12-23 07:25 | NUR ---
RECEIVED BEDSIDE REPORT FROM TRANSFER CAR OPERATOR DORA APARICIO. PT IS AOX1, TO NAME. AFEBRILE 97.9F. LUNG SOUNDS CRACKLE, WHEEZING AND RHONCHI. ON BREATHING TX AND OXYMIZER 4LPM. ST ON MONITOR. G TUBE IN PLACE, G TUBE SITE IS CLEAN. G TUBE RESIDUAL 0ML. WILL START FEEDING TODAY PER MD ORDER. BOOKER CATH IN PLACE DRAINING CLEAR YELLOW URINE. RIGHT IJ CENTRAL LINE TRIPLE LUMEN IN PLACE, INFUSING D5NS AT 75 ML/HR. SKIN NON INTACT. OPTIFOAM DRESSING ON SACRAL COCCYX, OPEN WOUND AROUND THE THE ANUS. HEEL PROTECTORS IN PLACE. HOB 30 DEG. SOFT RESTRAINT ON RIGHT WRIST ONLY. CAP REFILL LESS THAN 3 SEC. FALL PRECAUTIONS IN PLACE. WILL CONTINUE TO MONITOR.
--- NOTE | 2018-12-23 07:25 | NUR ---
GAVE BEDSIDE REPORT TO MORNING SHIFT RN, CONNOR, FOR CONTINUITY OF CARE. RT ABBY AT BEDSIDE TO ADMINISTER BREATHING TREATMENT.
[2018-12-23] MEDS: NACL 0.9% 1,000 ML IV SCH ×2 (08:31→23:59)
[2018-12-23] MEDS: DONEPEZIL 10 MG TAB PO SCH (08:53)
[2018-12-23] MEDS: LACTOBACILLUS RHAMNOSUS GG 1 EACH CAP PO SCH (08:54)
[2018-12-23] MEDS: HYDROcodone/APAP 5/325 MG 1 TAB TAB PO PRN (08:54)
[2018-12-23] MEDS: FAMOTIDINE 20 MG TAB PO SCH (08:55)
[2018-12-23] MEDS: NYSTATIN 500 MU/5 ML UDC PO SCH ×4 (08:55→20:15)
--- NOTE | 2018-12-23 09:10 | NUR ---
DR WHALEN HAS SEEN THE PT.
[2018-12-23] MEDS: SODIUM FERRIC GLUCONATE 125 MG in NACL 0.9% 100 ML IV SCH (09:47)
[2018-12-23] MEDS: SCOPOLAMINE 1.5 MG/72 HR PATCH TD SCH (09:53)
--- NOTE | 2018-12-23 10:05 | NUR ---
PT HAS A BM, YELLOW SOFT STOOL, MODERATE AMOUNT. PT WAS CLEANED, AND CHUX WAS CHANGED. Z GUARD APPLIED TO MILLIE AREA.
--- NOTE | 2018-12-23 11:15 | NUR ---
G TUBE FEEDING HELD FOR CT SCAN.
--- NOTE | 2018-12-23 11:45 | NUR ---
DR BARAJAS CAME TO SEE THE PT. DR BARAJAS SAID HE WILL LET DR TIWARI KNOW THAT PT HAS POSITIVE FECAL OCCULT TO SEE IF PT NEEDS COLONOSCOPY.
[2018-12-23 12:07] LABS: FOLIC ACID 18.1 ng/mL (>3.0)
[2018-12-23] MEDS: MORPHINE SULFATE 2 MG/ML SYR IVP PRN ×2 (12:53→21:49)
--- NOTE | 2018-12-23 13:30 | NUR ---
WOUND CARE DONE. PT HAS SACRAL-COCCYX BLANCHABLE REDNESS. Z GUARD AND OPTIFOAM APPLIED. OPEN WOUNDS AROUND THE ANUS RELATED TO INCONTINENCE. TOTAL OF 4 OPEN WOUNDS WITH THE BIGGEST ONE MEASURING 1.2X1.2 CM. Addendum: 12/23/18 at 1424 by Tao Biggs RN CLEANED WOUNDS WITH SOAP, RINSED WITH NS, PATTED DRY, APPLIED Z GUARD.
[2018-12-23] MEDS: Z-GUARD PASTE TP SCH (13:38)
--- NOTE | 2018-12-23 15:15 | NUR ---
TOOK PT TO CT HEAD WITH CONTRAST. PT WENT WITH PORTABLE O2, AND MONITOR. Addendum: 12/23/18 at 1619 by Tao Biggs RN 1MG ATIVAN WAS GIVEN FOR RESTLESSNESS AND ANXIETY.
--- NOTE | 2018-12-23 15:50 | NUR ---
PT RETURNED TO ICU, RECONNECTED PT TO O2, MONITOR, IVF AND STARTED G TUBE FEEDING. Addendum: 12/23/18 at 1617 by Tao Biggs RN G TUBE RESIDUAL 0ML.
--- NOTE | 2018-12-23 15:55 | NUR ---
RADIOLOGIST RECOMMEND TO GIVE PT MORE FLUID DUE TO CONTRAST AND LOW GFR. CALLED [phone] BAR[address]AS. DR MCKENZIE ANSWERED AND SAID WILL ASK DR BARAJAS TO CALL ICU BACK.
[2018-12-23] MEDS ORDERED: NACL 0.9% 500 ML IV ONE (16:40)
--- NOTE | 2018-12-23 18:38 | NUR ---
56Ivette, SPOKE DR ZAMORA, MADE HIM AWARE K 2.8 AND MEY REJECTED SPUTUM SAMPLE. IF HE WANTS SPUTUM CULTURE, HE HAS TO ORDER IT AGAIN. WE WILL CALL RT TO SUCTION PT.
[2018-12-23] MEDS ORDERED: POTASSIUM CHLORIDE 40 MEQ, LIDOCAINE MPF 1% - 5 mL VIAL 25 MG in NACL 0.9% 250 ML IV SCH (19:00)
--- NOTE | 2018-12-23 19:20 | NUR ---
BEDSIDE REPORT GIVEN TO HOTEL SERVICE SUPERVISOR RNTANNA.
--- NOTE | 2018-12-23 19:30 | NUR ---
RECEIVED BEDSIDE REPORT FROM DORA BUTLER, PATIENT IN BED, SLEEPING, ON OXYMIZER 4 L O2SAT 97%. RT AT BEDSIDE, MADE ROUNDS, GAVE BREATHING TREATMENT, LUNG SOUNDS RHONCHI AND COURSE CRACKLES BILATERALLY. CENTRAL LINE IN RIGHT NECK, DRESSING INTACT, INFUSING NS AT 70 ML/HR. SKIN TEAR AND INCONTINENT DERMATITIS NEAR RIGHT MILLIE-ANAL AREA, RIGHT LOWER ABDOMEN REDNESS. G-TUBE INFUSING JEVITY 1.2 AT 20 ML/HR, RESIDUALS AT 10 ML, INCREASED FEEDING TO 30 ML/HR WITH WATER FLUSH 100 Q4H, DR ENCISO AT BEDSIDE, CHANGED G-TUBE CONNECTION. BOOKER CATH IN PLACE DRAINING CLEAR YELLOW URINE. DR TOM AT BEDSIDE, DID ASSESSMENT, ORDERS TO INFUSE KCL WITHOUT LIDOCAINE IN CENTRAL LINE AND TO CHANGE BOOKER CATH. PATIENT HAD ONE SMALL BM, SOFT BROWN. SCD IN PLACE, HOB AT 30 DEGREES, RIGHT SOFT WRIST RESTRAINTS ON, LEFT SIDED WEAKNESS, CIRCULATION NOT COMPROMISED, ALL SIDE RAILS UP. WILL CONTINUE TO FREQUENTLY MONITOR.
[2018-12-23] MEDS ORDERED: KCL 20 MEQ/WATER INJ PREMIX 200 ML IV ONE (19:45)
--- NOTE | 2018-12-23 20:23 | NUR ---
ADMINISTERED KCL 20MEQ INFUSING AT 50 ML/HR IN RIGHT NECK TRIPLE LUMEN CENTRAL LINE.
--- NOTE | 2018-12-23 20:27 | NUR ---
PATIENT PULLING AT LINES, MOVING AROUND IN BED, ADMINISTERED ATIVAN.
--- NOTE | 2018-12-23 21:00 | NUR ---
EMPTIED 400 ML CLEAR YELLOW URINE. D/C BOOKER CATHETER, TIP OF CATHETER INTACT. INSERTED NEW BOOKER CATHETER, SECURED TO LEFT THIGH.
--- NOTE | 2018-12-23 21:49 | NUR ---
FLACC 7, PATIENT MOANING, MOVING AROUND IN BED, BP 168/80 MAP 117 HR 115 RR 28 LABORED. ADMINISTERED MORPHINE 1 MG IVP.
--- NOTE | 2018-12-23 22:25 | NUR ---
2ND BAG KCL GIVEN
--- NOTE | 2018-12-23 22:30 | NUR ---
RT AT BEDSIDE, DEEP SUCTIONED PATIENT, THICK, YELLOW SECRETIONS SUCTIONED. SPUTUM SAMPLE COLLECTED AND SENT TO LAB.
--- NOTE | 2018-12-23 23:13 | NUR ---
DUE ZOSYN GIVEN INFUSING AT 100 ML/HR
[2018-12-24] VITALS (37 sets, daily range): BP systolic 94–174; BP diastolic 47–111
--- NOTE | 2018-12-24 | NUR ---
STARTED NEW BAG NS INFUSING AT 50 ML/HR IN RIGHT CENTRAL LINE.
--- NOTE | 2018-12-24 01:00 | NUR ---
REPOSITIONED PATIENT FOR COMFORT, PATIENT HAD 1 SMALL BM, SOFT BROWN.
[2018-12-24] MEDS: Z-GUARD PASTE TP SCH ×2 (01:13→12:05)
[2018-12-24] MEDS: NACL 0.9% IRR 250 ML BOTTLE IR SCH ×2 (01:13→12:04)
--- NOTE | 2018-12-24 01:30 | NUR ---
RT AT BEDSIDE MADE ROUNDS, O2 SAT 97% ON 4 L OXYMIZER
[2018-12-24] MEDS: LORazepam 2 MG/ML VIAL IM/IVP PRN ×2 (02:38→13:54)
--- NOTE | 2018-12-24 02:38 | NUR ---
PATIENT MOVING AROUND IN BED, MOVING RIGHT ARM, GAVE ATIVAN FOR AGITATION.
[2018-12-24] MEDS: HYDROcodone/APAP 5/325 MG 1 TAB TAB PO PRN (03:03)
--- NOTE | 2018-12-24 03:03 | NUR ---
FLACC-7 BP 164/90 HR 125 GAVE ROSMERY
--- NOTE | 2018-12-24 03:10 | NUR ---
CALLED RT DUE TO PATIENT SHOWING INCREASED WORK OF BREATHING, CALLED DR TOM, TO REPORT HR IN 120'S AND RR IN 30'S AND INCREASED WORK OF BREATHING. DR TOM AND RT AT BEDSIDE. ORDERS TO REPEAT ABG. RT COLLECTED ABG AND SENT TO LAB.
[2018-12-24] MEDS: ALBUTEROL SULFATE/IPRATROPIU 3 ML SOL IH PRN (03:53)
--- NOTE | 2018-12-24 04:00 | NUR ---
RT DEEP SUCTIONED PATIENT, MODERATE BLOODY SECRETIONS NOTED. PATIENT LOOKS MORE RELAXED AFTER DEEP SUCTIONING. 100% O2SAT, RR 28 EVEN, CHEST RISE SYMMETRICAL
--- NOTE | 2018-12-24 04:10 | NUR ---
RESIDUALS AT 10 ML INCREASED TUBE FEEDING RATE TO 50 ML/HR
--- NOTE | 2018-12-24 04:53 | NUR ---
EMPTIED 500 ML DARK YELLOW URINE FROM BOOKER CATH.
[2018-12-24] MEDS: PIPER/TAZO 2.25GM/D5W PREMIX 50 ML IV SCH ×4 (05:03→23:35)
[2018-12-24 05:58] LABS: EOSINOPHILS % (AUTO) 0.1 % (0.0-4.0); HEMATOCRIT 26.1 % (36-48); HEMOGLOBIN 8.4 g/dL (12.0-16.0); LYMPHOCYTES # (AUTO) 0.7 K/uL (2.5-16.5); LYMPHOCYTES % (AUTO) 6.1 % (20.5-51.1); MEAN CORPUSCULAR HEMOGLOBIN 32 pg (27-31); MEAN CORPUSCULAR HGB CONC 32 g/dL (33-37); MONOCYTES # (AUTO) 0.6 K/uL (0.8-1.0); MONOCYTES % (AUTO) 5.2 % (1.7-9.3); NEUTROPHILS # (AUTO) 10.7 K/uL (1.8-7.7); NEUTROPHILS % (AUTO) 88.6 % (42.2-75.2); PLATELET COUNT (AUTO) 145 K/uL (140-450); RED BLOOD CELL COUNT(AUTO) 2.64 MIL/uL (4.20-5.40); RED CELL DISTRIBUTION WIDTH 14.8 % (11.6-13.7); WHITE BLOOD COUNT (AUTO) 12.1 K/uL (4.8-10.8)
--- NOTE | 2018-12-24 06:15 | NUR ---
DR BARAJAS AT BEDSIDE, MADE ROUNDS, ASSESSMENT DONE, UPDATE GIVEN. WILL FOLLOW UP WITH NEW ORDER FOR RECTAL BAG PLACEMENT. WILL ENDORSE TO DAY SHIFT NURSE.
--- NOTE | 2018-12-24 06:22 | NUR ---
REPEAT CHEST XRAY DONE
[2018-12-24 06:26] LABS: ANION GAP 7.7 (8-16); CARBON DIOXIDE 31.9 mmol/L (21-32); CHLORIDE 112 mmol/L (98-107); CREATININE 0.8 mg/dL (0.6-1.3); GLUCOSE 149 mg/dL (74-106); POTASSIUM 3.6 mmol/L (3.5-5.1); SODIUM SERUM 148 mmol/L (136-145); UREA NITROGEN, BLOOD 33 mg/dL (7-18)
[2018-12-24 06:41] LABS: MAGNESIUM 2.5 mg/dL (1.8-2.4); PHOSPHORUS 2.3 mg/dL (2.5-4.9)
[2018-12-24] MEDS: ALBUTEROL SULFATE/IPRATROPIU 3 ML SOL IH SCH ×3 (06:51→19:20)
--- NOTE | 2018-12-24 07:14 | NUR ---
ENDORSED PATIENT TO DAY SHIFT NURSE RUBEN. R/T AT BEDSIDE.
--- NOTE | 2018-12-24 07:15 | NUR ---
RECIEVED CHANGE OF SHIFT BEDSIDE REPORT FROM DORA HENDRICKS AND DORA PULLIAM IV NS INFUSING ON RIGHT IJ AT 50ML/H AND TRIPLE LUMEN RIGHT IJ SITE IS CLEAN, DRY, AND INTACT WITH NO ABNORMALITIES. PATIENT LETHARGIC AND RESTING. SKIN WARM, DRY, AND INTACT EXCEPT FOR SACRAL AREA INCONTINENT DERMATITIS AND PRESSURE ULCER. DRAWBENCH OPERATOR SHOWS ST WITH HR 105 BPM. TACHYPNEIC WITH LABORED AND SHALLOW BREATHING; EXPIRATORY WHEEZING, AND CRACKLES IN BILATERAL UPPER LOBES. PATIENT ON 7L OF OXYGEN VIA OXIMIZER AND WITH BOOKER CATHETER IN PLACE - CURRENT OUTPUT OF URINE 200ML WITH APPEARANCE YELLOW AND CLEAR. ABDOMINAL BINDER IN PLACE TO PREVENT PATIENT FROM PULLING OUT HER G TUBE - G TUBE IS INTACT WITH NO ABNORMALITIES AT G TUBE INSERTION SITE. BED LEFT IN LOW POSITION WITH CALL LIGHT WITHIN REACH
[2018-12-24] MEDS: ACETYLCYSTEINE 10% (100 MG/ML) 100 MG/ML VIAL INH SCH ×3 (07:55→19:20)
--- NOTE | 2018-12-24 08:16 | NUR ---
DR. SALAS AND RESIDENT PHYSICIANS AT BEDSIDE, UPDATED ON PATIENT'S CONDITION. WILL FOLLOW UP WITH ANY ORDERS
--- NOTE | 2018-12-24 08:17 | NUR ---
PER DR. SALAS, NO NEED FOR RECTAL BAG AT THIS TIME AND IF BP KEEPS FLUCTUATING THEN START CVP MONITORING.
--- NOTE | 2018-12-24 08:25 | NUR ---
PATIENT HAD 1 LARGE LOOSE BROWN BM, PATIENT CLEANED AND Z-GUARD APPLIED TO OPEN WOUNDS AND INCONTINENT DERMATITIS TO PERIANAL AREA. PATIENT TOLERATED WELL. WILL CONTINUE TO MONITOR
[2018-12-24] MEDS: FAMOTIDINE 20 MG TAB PO SCH (09:00)
[2018-12-24] MEDS: LACTOBACILLUS RHAMNOSUS GG 1 EACH CAP PO SCH (09:00)
[2018-12-24] MEDS: SODIUM FERRIC GLUCONATE 125 MG in NACL 0.9% 100 ML IV SCH (09:00)
[2018-12-24] MEDS: DONEPEZIL 10 MG TAB PO SCH (09:00)
[2018-12-24] MEDS: NYSTATIN 500 MU/5 ML UDC PO SCH ×4 (09:00→21:00)
[2018-12-24] MEDS ORDERED: ALBUTEROL SULFATE/IPRATROPIU 3 ML SOL IH PRN (09:05)
[2018-12-24] MEDS ORDERED: PROBIOTIC SCREEN 1 EA MISC MC PRN (09:20)
[2018-12-24] MEDS ORDERED: SODIUM PHOS / POTASSIUM PHOS 1 PKT PDR GT SCH (10:00)
--- NOTE | 2018-12-24 11:17 | NUR ---
ADMINISTERED PRN TYLENOL 650MG FOR LOW GRADE FEVER OF 100.2, PATIENT TOLERATED WELL. WILL CONTINUE TO MONITOR
[2018-12-24] MEDS ORDERED: ALBUTEROL SULFATE/IPRATROPIU 3 ML SOL IH SCH (12:00)
[2018-12-24] MEDS: MORPHINE SULFATE 2 MG/ML SYR IVP PRN (12:04)
--- NOTE | 2018-12-24 12:30 | NUR ---
PATIENT HAD SECOND BOWEL MOVEMENT THIS SHIFT. MODERATE LOOSE BROWN STOOL PATIENT WAS CLEANED, Z GUARD APPLIED TO PERIANAL AREA, AND SACRAL DRESSING FOR PRESSURE ULCER WAS CHANGED. NO CHANGES PRESENT UPON INSPECTION OF PRESSURE ULCER.
--- NOTE | 2018-12-24 13:11 | NUR ---
12/24/18 RD FOLLOW UP COMPLETED PLEASE REFER TO NUTRITION ASSESSMENT UNDER CARE ACTIVITY FOR ESTIMATED NUTRITIONAL NEEDS. 1.CONTINUE JEVITY 1.2 AT 60 ML/HR -THIS WILL PROVIDE 1788 KCAL, AND 95 GM OF PROTEIN, WHICH MEETS 100% OF ESTIMATED NUTRITION NEEDS 2.CONTINUE WITH FREE WATER FLUSH 100 Q 4 H. 3. CONTINUE VITAMIN C [address] TO FOLLOW-UP 2-3 DAYS, HIGH RISK MADELEINE CAMACHO RD
--- NOTE | 2018-12-24 14:23 | NUR ---
PATIENT WAS RESTLESS AND TACHYPNEIC, ADMINISTERED ATIVAN 1MG PRN IVP. PATIENT TOLERATED WELL.
--- NOTE | 2018-12-24 16:30 | NUR ---
DR. WHALEN IS HERE TO SEE PATIENT, UPDATED ON PATIENT'S CONDITION. WILL FOLLOW UP ON ANY ORDERS.
--- NOTE | 2018-12-24 16:40 | NUR ---
PER DR. WHALEN, PATIENT NEEDS TO BE INTUBATED DUE TO INCREASE WORK OF BREATHING. DR. WHALEN IS ON THE PHONE WITH FAMILY,UPDATING THEM ON PATIENT'S CONDITION, FAMILY AGREES WITH INTUBATION.
--- NOTE | 2018-12-24 16:50 | NUR ---
PT INTUBATED [address] DENTON WITH 7.5 ETT 23 @ LIP LINE BREAYTH SOUNDS PRESENT BILAT RHONCHI ETT SECURE X RAY DONE VENT PLUGGED INTO RED OUTLET AMBU BAG AT BEDSIDE WILL CONTINUE TO MONITOR PT ON VENT
--- NOTE | 2018-12-24 17:45 | NUR ---
RECIEVED CALL FROM X -RAY ETT IN LOW POSITION , DR DENTON NOTIFIED CAME TO SEE THE PT. PULLED THE ETT OUT . CHEST X-RAY ORDERED.
[2018-12-24] MEDS: PROPOFOL 1000 MG/100 ML PREMIX 100 ML IV PRN (17:46)
[2018-12-24] MEDS: NACL 0.9% 1,000 ML IV SCH ×2 (17:46→23:35)
--- NOTE | 2018-12-24 17:50 | NUR ---
PATIENT IS STARTED ON PROPOFOL DRIP AT 5MCG/KG/MIN, DRY WEIGHT IS 57 KG, RASS IS -3.
--- NOTE | 2018-12-24 18:08 | NUR ---
PER STACY ETT PULLED BACK TO [address] BERTIN OSUNA
--- NOTE | 2018-12-24 19:17 | NUR ---
ENDORSED CONTINUITY OF CARE TO POWER GENERATION ENGINEER RNSELENE. NO SIGNS OF DISTRESS NOTED.
--- NOTE | 2018-12-24 19:43 | NUR ---
RECEIVED PT FROM AM SHIFT, PT WAS INTUBATED TO DAY AT 1745 PER REPORT. ETT NO 7.5 TO VENT. VENT SETTING AC RATE 12, FIO2 40%, TIDAL VOLUME 450 AND PEEP OF 5. PT CONT ON SEDATION PROPOFOL AT 5 MCG/KG/MIN WITH RASS -3. SINUS TACHY NOTED ON MONITOR. CENTRAL LINE TO RIGHT IJ TRIPLE LUMENS,INTACT AND FLUSHING WELL.IV NS AT 50 CC/HR. GT IN PLACE WITH JEVITY 1.2 AT 60 CC/HR AND H20 AT 100 CC Q 4HRS WITH 10 CC RESIDUAL . BOTH HAND EDEMA NON PITTING, RIGHT HAND DISCOLORATION. SKIN WARM TO TOUCH.ABD SOFT NON DISTENDED. SCD IN PLACE. F/C IN PLACE WITH YELLOW CLEAR URINE.KEPT CLEAN AND DRY. CONT TO MONITOR CLOSELY. Addendum: 12/24/18 at 2223 by Edith Lovelace RN DRY WEIGHT FOR PROPOFOL IS 57 KG
--- NOTE | 2018-12-24 21:00 | NUR ---
THE SON AND DAUGHTER IN LAW COME TO SEE PT.
--- NOTE | 2018-12-24 21:10 | NUR ---
NIGHT MED GIVEN GHAZALA WELL
--- NOTE | 2018-12-24 21:30 | NUR ---
COME TO SEE PT AND UP DATE PT CONDITION TO THE SON. NO NEW ORDER AT THIS TIME. AWARE PT HAS LOOSE STOOL X3 TO DAY.
--- NOTE | 2018-12-24 22:33 | NUR ---
COME TO ASSESS RESIDENT, UP DATE PT CONDITION TO .
[2018-12-25] VITALS (110 sets, daily range): BP systolic 80–198; BP diastolic 39–102
--- NOTE | 2018-12-25 00:47 | NUR ---
PT BM X2 ALREADY WITH LARGE LOOSE A[place]. PLACE RECTAL BAG FOR WOUND MANAGEMENT.GOOD PERIANAL CARE GIVEN.KEPT CLEAN AND DRY.
[2018-12-25] MEDS: NOREPINEPHRINE 8 MG in DEXTROSE 5% 250 ML IV PRN (01:30)
--- NOTE | 2018-12-25 01:30 | NUR ---
PROPOFOL IS HOLD D/T RASS -4 AND BP IS LOW 88/40,HR 96,SPO2 98%. START LEVOPHED AT 5 MCG/MIN CONT TO MONITOR CLOSELY
[2018-12-25] MEDS ORDERED: NOREPINEPHRINE 4 MG/4 ML VIAL IV ONE (01:42)
[2018-12-25] MEDS: Z-GUARD PASTE TP SCH ×2 (01:54→13:03)
[2018-12-25] MEDS: NACL 0.9% IRR 250 ML BOTTLE IR SCH ×2 (01:54→13:03)
--- NOTE | 2018-12-25 02:00 | NUR ---
BP INCREASE TO 136/60 ,HR 94, R 16,SPO2 99% CONTINUE TO MONITOR. PT RASS -4. PROPOFOL STILL ON HOLD
--- NOTE | 2018-12-25 02:15 | NUR ---
RASS -3 PROPOFOL STILL ON HOLD
--- NOTE | 2018-12-25 04:30 | NUR ---
RE-START THE PROPOFOL AT 5 MCG/KG/MIN D/T RASS+2. MORNING CARE GIVEN. BED BATH,ORAL CARE,PERINEAL CARE, AND ORAL CARE GIVEN. KEPT PT CLEAN AND DRY.
--- NOTE | 2018-12-25 04:35 | NUR ---
RASS -3 CONT SAME DOSE OF PROPOFOL
[2018-12-25] MEDS: PIPER/TAZO 2.25GM/D5W PREMIX 50 ML IV SCH ×3 (05:03→17:16)
[2018-12-25] MEDS: PROPOFOL 1000 MG/100 ML PREMIX 100 ML IV PRN ×2 (06:00→18:23)
[2018-12-25 06:11] LABS: ANION GAP 7.3 (8-16); CARBON DIOXIDE 29.8 mmol/L (21-32); CHLORIDE 112 mmol/L (98-107); CREATININE 0.8 mg/dL (0.6-1.3); GLUCOSE 225 mg/dL (74-106); POTASSIUM 3.1 mmol/L (3.5-5.1); SODIUM SERUM 146 mmol/L (136-145); UREA NITROGEN, BLOOD 34 mg/dL (7-18)
[2018-12-25 06:17] LABS: MAGNESIUM 2.2 mg/dL (1.8-2.4); PHOSPHORUS 1.7 mg/dL (2.5-4.9)
--- NOTE | 2018-12-25 06:33 | NUR ---
DR SIEGEL COME TO SEE PT, UP DATE PT CONDITION, MADE MD AWARE PT HAS 3X LOOSE STOOL AT EXTRACT OPERATOR ,MD ALSO AWARE PT CONTINUE ON PROPOFOL AT 5 MCG/KG/MIN AND LEVOPHED 5MCG/MIN. AWARE POTASSIUM THIS AM IS 3.1.
[2018-12-25] MEDS: ALBUTEROL SULFATE/IPRATROPIU 3 ML SOL IH SCH ×3 (06:37→18:54)
[2018-12-25] MEDS: MORPHINE SULFATE 2 MG/ML SYR IVP PRN (06:58)
[2018-12-25] MEDS: ACETYLCYSTEINE 10% (100 MG/ML) 100 MG/ML VIAL INH SCH ×2 (07:01→18:54)
[2018-12-25 07:07] LABS: EOSINOPHILS # (AUTO) 0.1 K/uL (0-0.4); EOSINOPHILS % (AUTO) 0.5 % (0.0-4.0); HEMATOCRIT 26.7 % (36-48); HEMOGLOBIN 8.6 g/dL (12.0-16.0); LYMPHOCYTES % (AUTO) 5.5 % (20.5-51.1); MEAN CORPUSCULAR HEMOGLOBIN 32 pg (27-31); MEAN CORPUSCULAR HGB CONC 32 g/dL (33-37); MEAN CORPUSCULAR VOLUME 100.1 fL (80-94); MONOCYTES # (AUTO) 1.1 K/uL (0.8-1.0); MONOCYTES % (AUTO) 6.1 % (1.7-9.3); NEUTROPHILS # (AUTO) 16.1 K/uL (1.8-7.7); NEUTROPHILS % (AUTO) 87.9 % (42.2-75.2); PLATELET COUNT (AUTO) 134 K/uL (140-450); RED BLOOD CELL COUNT(AUTO) 2.66 MIL/uL (4.20-5.40); RED CELL DISTRIBUTION WIDTH 15.1 % (11.6-13.7); WHITE BLOOD COUNT (AUTO) 18.3 K/uL (4.8-10.8)
--- NOTE | 2018-12-25 07:21 | NUR ---
REPORT GIVEN TO AM SHIFT. PT STILL ON SEDATION PROPOFOL 5 CG/KG/MIN AND LEVOPHED AT 5 MCG/MIN.ALSO AWARE PT JUST RECEIVED MORPHINE 1 MG IVP FOR PAIN.
[2018-12-25] MEDS ORDERED: POTASSIUM PHOSPHATE 15 MM in NACL 0.9% 250 ML IV SCH (08:00)
--- NOTE | 2018-12-25 08:00 | NUR ---
RECEIVED PATIENT INTUBATED ETT 7.5, 21 CM IN THE GUM, ON VENTILATOR FIO2 35% TIDAL VOLUME 450 FIO2 40% PEEP 5, ON PROPOFOL 5 MCG/KG/MIN. DRY WEIGHT 57 KGS, SO2 98%, LOCALIZES TO PAIN WITH RIGHT ARM, SINUS RHYTHM ON MONITOR, ON LEVOPHED 5 MCG/MIN., PEG TUBE IN PLACE, NO RESIDUALS JEVITY RUNNING AT 60 CC/HR., WITH BOOKER CATHETER, KONSTANTIN URINE NOTED
--- NOTE | 2018-12-25 08:00 | NUR ---
DR. WHALEN AT BEDSIDE
--- NOTE | 2018-12-25 08:01 | NUR ---
RIGHT IJ TRIPLE LUMEN CENTRAL LINE-SITE ASYMPTOMATIC, MILD BRUISING IN BOTH FOREARMS, SKIN PEEL IN PERIANAL AREA, SACRUM INTACT WITH OPTIFOAM FOR PREVENTATIVE.
[2018-12-25] MEDS: ASCORBIC ACID 500 MG/5 ML ORASYR GT SCH (08:10)
[2018-12-25] MEDS: PANTOPRAZOLE 40 MG INJ VIAL IVP SCH ×2 (08:10→20:35)
[2018-12-25] MEDS: DONEPEZIL 10 MG TAB PO SCH (08:11)
[2018-12-25] MEDS: LACTOBACILLUS RHAMNOSUS GG 1 EACH CAP PO SCH (08:11)
[2018-12-25] MEDS: SODIUM PHOS / POTASSIUM PHOS 1 PKT PDR GT SCH (08:12)
[2018-12-25] MEDS: SODIUM FERRIC GLUCONATE 125 MG in NACL 0.9% 100 ML IV SCH (08:12)
[2018-12-25] MEDS: NYSTATIN 500 MU/5 ML UDC PO SCH ×4 (09:00→20:35)
--- NOTE | 2018-12-25 10:25 | NUR ---
INFORMED PHARMACIST JENNIFER THAT NYSTATIN STILL UNAVAILABLE
--- NOTE | 2018-12-25 14:25 | NUR ---
PATIENT HAD BOWEL MOVEMENT NOTED LOOSE BROWN STOOL, PERINEAL ANAL CARE RENDERED. STOOL SAMPLE SENT FOR C. DIFFICILE
[2018-12-25] MEDS: VANCOMYCIN 500 MG VIAL PO SCH (17:15)
--- NOTE | 2018-12-25 18:45 | NUR ---
CVP READING 4-8 FOR THE WHOLE SHIFT
--- NOTE | 2018-12-25 19:03 | NUR ---
REPORT GIVEN TO NIGHT RN
--- NOTE | 2018-12-25 19:30 | NUR ---
REPORT RECEIVED FROM MORNING NURSE, PATIENT SONYA FUENTES, LETHARGIC. ETT OT VENT WITH SETTING A/C FIO2 35%, VT 450, RATE 12, PEEP 5. BILATERAL LUNGS SOUND DIMINISHED. NO ACUTE RESPIRATORY DISTRESS NOTED. ST TO SR ON THE MONITOR. G TUBE TO FEEDING WITH JEVITY 60ML/HR WITH WATER FLUSH 100ML Q4. PLACEMENT CHECKED, RESIDUAL 5CC NOTED. F/C IN PLACE WITH KONSTANTIN COLOR URINE DRAINING TO BAG. CENTRAL LINE TO RIGHT IF WITH TRIPLE LUMENS, INTACT AND PATENT WITH GOOD BLOOD RETURN. RUNNING WITH NS 50ML/HR, PROPOFOL 15MCG/KG/HR WITH DRY WEIGHT 57KG WITH RASS -3. ON CONTACT ISOLATION FOR MDRO FORM BLOOD. SCD IN PLACE. HEELS PROTECTOR IN PLACE. WILL CONTINUE TO MONITOR. Addendum: 12/25/18 at 2253 by Shari Sales RN PATIENT SEDATED WITH PROPOFOL DRIP, RASS-3 NOTED.
[2018-12-25] MEDS: HYDROcodone/APAP 5/325 MG 1 TAB TAB PO PRN (20:38)
--- NOTE | 2018-12-25 20:45 | NUR ---
ADMINISTERED SCHEDULED MEDICATIONS ORDERED. NO ACUTE RESPIRATORY DISTRESS NOTED. WILL CONTINUE TO MONITOR. Addendum: 12/25/18 at 2157 by Shari Sales RN ZERO THE CVP MONITOR.
--- NOTE | 2018-12-25 21:00 | NUR ---
RIRI SOLORIO AT BEDSIDE TO CHECK THE PATIENT.
--- NOTE | 2018-12-25 23:00 | NUR ---
PATIENT SEDATED WITH PROPOFOL DRIP, RASS -3, NO ACUTE DISTRESS NOTED. TOLERATED WELL WITH ETT TO VENT. WILL CONTINUE TO MONITOR.
[2018-12-26] VITALS (106 sets, daily range): BP systolic 89–188; BP diastolic 39–85
[2018-12-26] MEDS: PIPER/TAZO 2.25GM/D5W PREMIX 50 ML IV SCH ×4 (00:40→17:32)
[2018-12-26] MEDS: VANCOMYCIN 500 MG VIAL PO SCH ×4 (00:41→17:34)
[2018-12-26] MEDS: Z-GUARD PASTE TP SCH ×2 (00:43→12:22)
[2018-12-26] MEDS: NACL 0.9% IRR 250 ML BOTTLE IR SCH ×2 (00:43→12:22)
--- NOTE | 2018-12-26 01:00 | NUR ---
ADMINISTERED SCHEDULED MEDICATIONS ORDERED. PATIENT HAD MODERATE BROWN DIARRHEA NOTED. APPLIED Z GUARD TO WOUND TO RIGHT BUTTOCK. WILL CONTINUE TO MONITOR.
--- NOTE | 2018-12-26 03:30 | NUR ---
RT IN PATIENT ROOM . VSS. NO ACUTE SIGNS OR SYMPTOMS OF DISTRESS NOTED.
[2018-12-26] MEDS: PROPOFOL 1000 MG/100 ML PREMIX 100 ML IV PRN ×2 (05:33→18:20)
--- NOTE | 2018-12-26 06:00 | NUR ---
PATIENT HAD SMALL AMOUNT OF BROWN DIARRHEA, MORNING CARE GIVEN. TOLERATED WELL WITH VENT, SR ON THE MONITOR. WILL CONTINUE TO MONITOR.
[2018-12-26 06:52] LABS: ANION GAP 11.8 (8-16); CARBON DIOXIDE 25.6 mmol/L (21-32); CHLORIDE 110 mmol/L (98-107); GLUCOSE 216 mg/dL (74-106); POTASSIUM 3.4 mmol/L (3.5-5.1); SODIUM SERUM 144 mmol/L (136-145); UREA NITROGEN, BLOOD 36 mg/dL (7-18)
[2018-12-26 06:56] LABS: MAGNESIUM 2.3 mg/dL (1.8-2.4); PHOSPHORUS 2.9 mg/dL (2.5-4.9)
[2018-12-26] MEDS: ALBUTEROL SULFATE/IPRATROPIU 3 ML SOL IH SCH ×3 (07:04→19:49)
[2018-12-26] MEDS: ACETYLCYSTEINE 10% (100 MG/ML) 100 MG/ML VIAL INH SCH ×2 (07:05→13:25)
[2018-12-26 07:12] LABS: HEMOGLOBIN 9.2 g/dL (12.0-16.0); MEAN CORPUSCULAR HEMOGLOBIN 33 pg (27-31); MEAN CORPUSCULAR HGB CONC 33 g/dL (33-37); PLATELET COUNT (AUTO) 136 K/uL (140-450); RED BLOOD CELL COUNT(AUTO) 2.81 MIL/uL (4.20-5.40); RED CELL DISTRIBUTION WIDTH 15.5 % (11.6-13.7); WHITE BLOOD COUNT (AUTO) 24.4 K/uL (4.8-10.8)
[2018-12-26] MEDS ORDERED: POTASSIUM CHLORIDE 20% 40 MEQ/15 ML UDC GT SCH (07:45)
--- NOTE | 2018-12-26 07:55 | NUR ---
RECEIVED CHANGE OF SHIFT BEDSIDE REPORT FROM VENICE. PATIENT SLEEPING AND STABLE. PATIENT'S DRY WEIGHT IS 57KG. LUNG SOUNDS CLEAR IN UPPER BILATERAL LOBES, BUT DIMINISHED IN LOWER BILATERAL LOBES. PATIENT ON A/C VC VENTILATOR MODE. PEEP:5, FLOW: 30, RR: 12, TV: 450, FIO2: 35. NSR ON ASSISTANT ADMINISTRATOR. SKIN WARM, DRY, AND INTACT EXCEPT FOR PRE-EXISTING PERIANAL DERMATITIS AND SACRAL PRESSURE ULCER. NO EDEMA PRESENT ON PATIENT. ON PROPFOL OF 20 WITH RASS OF -3. CVP OF 5. BED LEFT IN LOW POSITION WITH CALL LIGHT IN REACH. Addendum: 12/26/18 at 1020 by Garfield Mello RN NO GASTRIC RESIDUALS PRESENT UPON ASPIRATING G-TUBE. TRIPLE LUMEN RIGHT IJ CENTRAL LINE DRESSING DRY, INTACT, AND WITH NO ABNORMALITIES. ADDITIONALLY, ALL 3 LUMENS OF RIGHT IJ LINE ARE PATENT.
--- NOTE | 2018-12-26 07:58 | NUR ---
DR. SALAS AND RESIDENT PHYSICIANS AT BEDSIDE, UPDATED ON PATIENT'S CONDITION, WILL FOLLOW UP ON ANY ORDERS.
[2018-12-26 08:29] LABS: BASOPHILS % (MANUAL) 0 % (0-2); EOSINOPHILS % (MANUAL) 0 % (0-4); LYMPHOCYTES % (MANUAL) 5 % (20-46); MONOCYTES % (MANUAL) 1 % (5-12)
[2018-12-26] MEDS: SODIUM PHOS / POTASSIUM PHOS 1 PKT PDR GT SCH (08:40)
[2018-12-26] MEDS: LACTOBACILLUS RHAMNOSUS GG 1 EACH CAP PO SCH (08:43)
[2018-12-26] MEDS: PANTOPRAZOLE 40 MG INJ VIAL IVP SCH ×2 (08:43→20:17)
[2018-12-26] MEDS: NYSTATIN 500 MU/5 ML UDC PO SCH ×5 (08:43→20:17)
[2018-12-26] MEDS: DONEPEZIL 10 MG TAB PO SCH (08:44)
[2018-12-26] MEDS: ASCORBIC ACID 500 MG/5 ML ORASYR GT SCH (08:47)
--- NOTE | 2018-12-26 09:23 | NUR ---
SEDATION VACATION STARTED WITH BEDSIDE. PHYSICIAN REQUESTS TO PLACE PT ON CPAP 5 PS 10 TOLERATED. NURSE IS BEDSIDE WILL CONTINUE TO MONITOR.
--- NOTE | 2018-12-26 09:26 | NUR ---
DR. WHALEN IN TO SEE AND EXAMINE PATIENT, UPDATED ON PATIENT'S CONDITION. STATES TO HOLD PROPOFOL FOR SEDATION VACATION AND TRY CPAP. CINDY RT, AT BEDSIDE TO CHANGE VENT SETTINGS.
--- NOTE | 2018-12-26 09:29 | NUR ---
PT BECAME TACHYPNEIC AND IRRITABLE RR HIGH 30'S LOW VT ON CPAP. MADE AWARE AND STATES TO PLACE PT BACK ON AC/VC.
--- NOTE | 2018-12-26 09:30 | NUR ---
PATIENT HAD 1 MODERATE YELLOWISH BROWN LOOSE BM, PATIENT CLEANED AND REPOSITIONED FOR COMFORT.
[2018-12-26] MEDS: SCOPOLAMINE 1.5 MG/72 HR PATCH TD SCH (09:52)
[2018-12-26] MEDS: SODIUM FERRIC GLUCONATE 125 MG in NACL 0.9% 100 ML IV SCH (10:07)
[2018-12-26] MEDS: NACL 0.9% 1,000 ML IV SCH ×2 (10:58→20:16)
--- NOTE | 2018-12-26 11:07 | NUR ---
PATIENT FAMILY AT BEDSIDE, UPDATED ON PATIENT'S CONDITION
[2018-12-26] MEDS ORDERED: FERROUS SULFATE 300 MG/5 ML UDC GT SCH (11:45)
--- NOTE | 2018-12-26 11:50 | NUR ---
DR. BARAJAS IS HERE, UPDATED ON PATIENT'S CONDITION. RECEIVED ORDER FOR RECTAL TUBE SINCE PATIENT HAS BEEN HAVING DIARRHEA AND HAS OPEN WOUND TO PERIANAL AREA.
--- NOTE | 2018-12-26 11:59 | NUR ---
PT TOLERATING VENT SETTINGS WELL AT THIS TIME NOT IN ANY DISTRESS. WILL CONTINUE TO MONITOR.
--- NOTE | 2018-12-26 12:45 | NUR ---
INSERTED RECTAL TUBE PER DOCTOR'S ORDER. INFLATED RECTAL TUBE BALLOON WITH 45ML OF AIR SECURE PLACEMENT. PATIENT TOLERATED PROCEDURE WELL. GAVE SCHEDULED MEDICATIONS AFTERWARDS AND PERFORMED ROUTINE ORAL CARE. BED LEFT IN LOW POSITION AND CALL LIGHT WITHIN REACH.
--- NOTE | 2018-12-26 13:39 | NUR ---
12/26/18 RD FOLLOW UP COMPLETED PLEASE REFER TO NUTRITION ASSESSMENT UNDER CARE ACTIVITY FOR ESTIMATED NUTRITIONAL NEEDS. 1. CONTINUE JEVITY 1.2 AT 60 ML/HR AND PROSOURCE QD -THIS WILL PROVIDE 1788 KCAL, AND 95 GM OF PROTEIN, WHICH MEETS 100% OF ESTIMATED NUTRITION NEEDS 2. CONTINUE WITH FREE WATER FLUSH 100 Q 4 H. 3. CONTINUE VITAMIN C [address] TO FOLLOW-UP 2-3 DAYS, HIGH RISK MADELEINE CAMACHO RD
--- NOTE | 2018-12-26 15:51 | NUR ---
PT NOT IN ANY DISTRESS AT THIS TIME WILL CONTINUE TO MONITOR.
--- NOTE | 2018-12-26 16:12 | NUR ---
PATIENT'S RECTAL TUBE CAME OUT, REPLACED WITH NEW RECTAL TUBE AND BALLOON INFLATED WITH 45ML FLUID. WILL CONTINUE TO MONITOR
--- NOTE | 2018-12-26 17:42 | NUR ---
PT REMAINS ON DOCUMENTED VENT SETTINGS. ETT IS SECURE WITH A PATENT AIRWAY. VENT ALARMS ON AND FUNCTIONING. PT IS NOT IN ANY DISTRESS AT THIS TIME.
--- NOTE | 2018-12-26 19:05 | NUR ---
CHANGE OF SHIFT REPORT GIVEN AT BEDSIDE BY RUBEN. PATIENT SEDATED WITH PROPOFOL DRIP RUNNING AT 20MCG/KG/MIN WITH DRY WEIGHT 57KG. RASS -3. PATIENT SHOWING NO S/S OF DISTRESS. VSS 100-96%-91/50-12. PATIENT ETT TO VENT 7.5 TUBE. 21 TO TEETH. FI02 35 VT 450 RR12 FLOW 35 PEEP 5. LUNG SOUNDS WITH RHONCHI HEARD BILATERALLY S1 S2 HEARD. SINUS RHYTHM ON MONITOR.CVP MONITORING. BP WNL. PULSES FELT BILATERALLY. BOWEL SOUNDS ACTIVE IN ALL QUADRANTS. ABD ROUND SOFT AND NON DISTENED. GTUBE FEEDING IN PLACE. 30 ML OF RESIDUAL. 60 ML JEVITY 1.2 WITH WATER FLUSH OF 100ML. BOOKER CATHETER IN PLACE. DRAINING CLOUDY DARK KONSTANTIN URINE. RECTAL TUBE IN PLACE WITH LIQUID BROWN STOOL. PT ON CONTACT PRECAUTIONS FOR POSITIVE C-DIFF. SKIN WARM AND DRY TO TOUCH. HEEL PROTECTORS ON BILATERALLY. SCD ON LEFT LEG. CENTRAL LINE R IJ 3 LUMEN. PATENT AND INTACT RUNNING NS 50ML/HR. NO S/S OF INFECTION. SIDE RAILS UP. HOB 30 DEGREES. SAFETY PRECAUTIONS IN PLACE.
--- NOTE | 2018-12-26 19:17 | NUR ---
ENDORSED CONTINUITY OF CARE TO FLOOR BROKER RNS, OSCAR. NO SIGNS OF DISTRESS NOTED.
--- NOTE | 2018-12-26 19:30 | NUR ---
RECVD PATIENT ON MECH VENT SETTINGS OF A/C, RATE 12, TIDAL VOLUME 450, PEEP 5, FIO2 35%. ALARMS ARE ON & AUDIBLE. PT TOLERATING SETTINGS WELL. MECH VENT CONNECTED TO RED PLUG OUTLET. AMBU BAG AT BEDSIDE OF PATIENT. E.T.TUBE SECURED. WILL CONTINUE TO MONITOR.
--- NOTE | 2018-12-26 21:00 | NUR ---
ADMINISTERED SCHEDULED MEDS ORDERED. GTUBE PATENT. FLUSHING WELL. PATIENT TOLERATED WELL. NO SOB NOTED. CHEST RISE SYMMETRIC. ORAL CARE GIVEN. REPOSITIONED PATIENT. SKIN INTACT ON ALL EXTREMITIES.
--- NOTE | 2018-12-26 23:40 | NUR ---
RT IN PATIENT ROOM. WILL CONTINUE TO MONITOR.
[2018-12-27] VITALS (107 sets, daily range): BP systolic 91–159; BP diastolic 40–90
[2018-12-27] MEDS: PIPER/TAZO 2.25GM/D5W PREMIX 50 ML IV SCH ×4 (00:13→18:53)
--- NOTE | 2018-12-27 00:25 | NUR ---
VANCOMYCIN NOT AVAILABLE. MEDICATION NOT GIVEN. Addendum: 12/27/18 at 0026 by Mayi Tamayo RN CALLED ASSOCIATE PRODUCER FOR THE MEDICATION, AND CURRENTLY NOT AVAILABLE. WILL CALL PHARMACY IN THE MORNING TO REMIND REGARDING THE MEDICATION. WILL NOTIFY MD REGARDING MISSED DOSE.
[2018-12-27] MEDS ORDERED: VANCOMYCIN 500 MG VIAL ONE (00:56)
--- NOTE | 2018-12-27 01:00 | NUR ---
VANCOMYCIN VIAL FOUND AND BROUGHT TO ICU BY INSPECTOR METAL FABRICATING. MIXED PER MD ORDERS. GIVEN TO PATIENT. TOLERATED WELL. ORAL CARE GIVEN. VSS. NO SOB. WILL CONTINUE TO MONITOR.
[2018-12-27] MEDS ORDERED: WATER STERILE 20 ML MC ONE (01:07)
[2018-12-27] MEDS: VANCOMYCIN 500 MG VIAL PO SCH ×5 (01:09→18:54)
[2018-12-27] MEDS: NACL 0.9% IRR 250 ML BOTTLE IR SCH ×2 (01:09→13:19)
[2018-12-27] MEDS: Z-GUARD PASTE TP SCH ×2 (01:10→13:19)
--- NOTE | 2018-12-27 03:42 | NUR ---
RT IN PATIENT ROOM. PATIENT TOLERATING WELL. VSS
[2018-12-27] MEDS: PROPOFOL 1000 MG/100 ML PREMIX 100 ML IV PRN (06:17)
[2018-12-27 06:24] LABS: HEMATOCRIT 30.8 % (36-48); HEMOGLOBIN 9.8 g/dL (12.0-16.0); MEAN CORPUSCULAR HEMOGLOBIN 32 pg (27-31); MEAN CORPUSCULAR HGB CONC 32 g/dL (33-37); MEAN CORPUSCULAR VOLUME 99.6 fL (80-94); PLATELET COUNT (AUTO) 127 K/uL (140-450); RED BLOOD CELL COUNT(AUTO) 3.09 MIL/uL (4.20-5.40); RED CELL DISTRIBUTION WIDTH 15.8 % (11.6-13.7)
[2018-12-27 07:02] LABS: ANION GAP 13.8 (8-16); CARBON DIOXIDE 22.7 mmol/L (21-32); CHLORIDE 108 mmol/L (98-107); CREATININE 1.4 mg/dL (0.6-1.3); GLUCOSE 232 mg/dL (74-106); POTASSIUM 4.5 mmol/L (3.5-5.1); SODIUM SERUM 140 mmol/L (136-145); UREA NITROGEN, BLOOD 47 mg/dL (7-18)
[2018-12-27 07:06] LABS: MAGNESIUM 2.5 mg/dL (1.8-2.4); PHOSPHORUS 4.3 mg/dL (2.5-4.9)
--- NOTE | 2018-12-27 07:14 | NUR ---
RECEIVED INTUBATED PT WITH A 7.5 ETT SECURED @21 TEETH/GUM ON VENT. SETTINGS AC/VC 12, VT 450, PEEP 5 AND FIO2 35%. PT IS SEDATED AT THIS TIME NOT IN ANY DISTRESS. ETT IS SECURE WITH ANCHOR FAST DEVICE AND A PATENT AIRWAY. VENT IS PLUGGED INTO A RED OUTLET WITH ALARMS ON AND FUNCTIONING. AMBU BAG IS PRESENT NEAR BEDSIDE. WILL CONTINUE TO MONITOR.
[2018-12-27] MEDS: ACETYLCYSTEINE 10% (100 MG/ML) 100 MG/ML VIAL INH SCH ×3 (07:15→19:05)
[2018-12-27] MEDS: ALBUTEROL SULFATE/IPRATROPIU 3 ML SOL IH SCH ×3 (07:15→19:04)
--- NOTE | 2018-12-27 07:16 | NUR ---
CHANGE OF SHIFT REPORT GIVEN AT BEDSIDE TO DAY NURSE. VSS. NO SOB. PT STABLE AT THIS TIME.
[2018-12-27 07:26] LABS: WHITE BLOOD COUNT (AUTO) 46.8 K/uL (4.8-10.8)
[2018-12-27 07:27] LABS: BASOPHILS % (MANUAL) 0 % (0-2); EOSINOPHILS % (MANUAL) 1 % (0-4); LYMPHOCYTES % (MANUAL) 4 % (20-46); MONOCYTES % (MANUAL) 2 % (5-12)
--- NOTE | 2018-12-27 07:42 | NUR ---
RECEIVED BED SIDE REPORT FROM NIGHT NURSE. PT ETT 7.5 TO VENT AC 12, PEEP 5, FIO2 34, TV 450. ON PROPOFOL 20 MCG/KG/MIN WITH RASS -3. BILATERAL LUNGS LOWER LOBE DIMINISHED. BOWEL SOUNDS ACTIVE. GT TO TUBE FEEDING. RESIDUAL 20ML. RECTAL TUBE IN PLACE NOTED WITH DARK BROWN LIQUID STOOL IN THE COLLECTION BAG. BILATERAL UPPER AND LOWER EXTREMITIES WITH PITTING EDEMA +2. SR ON MONITOR. CENTRAL LINE TO LEFT IJ WITH TRIPLE LUMEN ALL PATENT AND ASYMPTOMATIC. CVP READING 5 AT THIS TIME. DRESSING INTACT IN THE SACROCOCCYX AREA. ON CONTACT ISOLATION PRECAUTIONS FOR C-DIFF AND MDRO BLOOD. AFEBRILE. FLACC 0. HOB ELEVATED 30 DEGREES. REPOSITIONED FOR COMFORT. CALL LIGHT IN REACH. BED KEPT TO THE LOWEST POSITION. WILL CONTINUE TO MONITOR.
--- NOTE | 2018-12-27 08:10 | NUR ---
DR. MURPHY IN TO SEE PT. NOTIFIED OF THE PITTING EDEMA OF +2 TO BILATERAL UPPER AND LOWER EXTREMITIES AND LAST NIGHT URINE OUTPUT. NEW ORDER RECEIVED. NOTED AND WILL CARRY OUT.
[2018-12-27] MEDS: NYSTATIN 500 MU/5 ML UDC PO SCH ×4 (09:11→20:38)
[2018-12-27] MEDS: FERROUS SULFATE 300 MG/5 ML UDC GT SCH (09:11)
[2018-12-27] MEDS: ASCORBIC ACID 500 MG/5 ML ORASYR GT SCH (09:12)
[2018-12-27] MEDS: PANTOPRAZOLE 40 MG INJ VIAL IVP SCH ×2 (09:12→20:38)
[2018-12-27] MEDS: LACTOBACILLUS RHAMNOSUS GG 1 EACH CAP PO SCH (09:13)
[2018-12-27] MEDS: SODIUM PHOS / POTASSIUM PHOS 1 PKT PDR GT SCH (09:13)
[2018-12-27] MEDS: DONEPEZIL 10 MG TAB PO SCH (09:16)
--- NOTE | 2018-12-27 09:17 | NUR ---
HEPARIN NOT ADMINISTERED DUE TO LOW PLATELET LEVEL. DR. MARTINEZ MADE AWARE.
[2018-12-27] MEDS: SODIUM FERRIC GLUCONATE 125 MG in NACL 0.9% 100 ML IV SCH (09:27)
--- NOTE | 2018-12-27 10:14 | NUR ---
DR. MARTINEZ MADE AWARE OF THE BLADDER SCAN RESULT. NO NEW ORDER RECEIVED AT THIS TIME.
--- NOTE | 2018-12-27 11:18 | NUR ---
NOTED GT SITE DRESSING. NOTED LEAKAGE OF THE TUBE FEEDING CONTENT. RESIDUAL OF 75ML NOTED. NOTIFIED DR. MARTINEZ. ORDER RECEIVED TO HOLD THE FEEDING FOR NOW. NOTED AND CARRIED OUT.
--- NOTE | 2018-12-27 11:40 | NUR ---
PT SUCTIONED OBTAINED SMALL AMOUNT OF CLEAR THICK SECRETIONS, AIRWAY IS PATENT AND ETT IS SECURE. WILL CONTINUE TO MONITOR.
[2018-12-27] MEDS ORDERED: PROPOFOL 1000 MG/100 ML PREMIX 100 ML IV PRN (13:05)
--- NOTE | 2018-12-27 13:10 | NUR ---
SPOKE TO REGARDING PT STATUS TECHNOLOGY TRAINING ASSOCIATE STATES PT NOT READY TO BE WEANED AT THIS TIME. WILL CONTINUE TO MONITOR.
--- NOTE | 2018-12-27 13:10 | NUR ---
DR. TUCKER AND THE DAUGHTER IN LAW AT BED SIDE.
--- NOTE | 2018-12-27 13:25 | NUR ---
TITRATED PROPOFOL DOWN TO 15 MCG/MIN. Addendum: 12/27/18 at 1646 by Petty Sales RN ADDITION: PER DR. TUCKER ORDERED TO WEAN OFF PROPOFOL AND CHANGE TO VERSED AND FENTANYL DRIPS. STARTED TO TITRATED DOWN PROPOFOL.
[2018-12-27] MEDS ORDERED: VANCOMYCIN PER PHARMACY MC PRN (14:00)
--- NOTE | 2018-12-27 14:06 | NUR ---
NO MORE LEAKAGE FROM THE GT SITE NOTED. GT RESIDUAL 30ML. DR. MARTINEZ MADE AWARE AND ORDERED TO START THE GT FEEDING SLOWLY. NOTED AND WILL CARRY OUT.
--- NOTE | 2018-12-27 14:15 | NUR ---
GT FEEDING STARTED AT 10ML/HR AT THIS TIME. RESIDUAL 20ML NOTED. WILL CONTINUE TO MONITOR.
[2018-12-27] MEDS ORDERED: VANCOMYCIN 750 MG in DEXTROSE 5% 250 ML IV SCH (15:00)
[2018-12-27] MEDS: fentaNYL 1 MG in NACL 0.9% 80 ML IV PRN (15:18)
[2018-12-27] MEDS: MIDAZOLAM MDV 50 MG in NACL 0.9% 40 ML IV PRN (15:21)
--- NOTE | 2018-12-27 15:30 | NUR ---
PROPOFOL DRIP STOPPED. FENTANYL DRIP STARTED @28.5 MCG/HR (DRY WEIGHT 75 KG) AND VERSED DRIP @1ML/HR. KEEPING RASS -2. WILL CONTINUE TO MONITOR FOR TITRATION. Addendum: 12/27/18 at 1620 by Petty Sales RN MISTYPED: DRY WEIGHT IS 57KG. NOT 75KG.
[2018-12-27] MEDS: ALBUTEROL SULFATE/IPRATROPIU 3 ML SOL IH PRN (15:58)
--- NOTE | 2018-12-27 17:28 | NUR ---
PT REMAINS ON DOCUMENTED VENT SETTINGS. ETT IS SECURE AND AIRWAY IS PATENT. PT REMAINS SEDATED NOT IN ANY DISTRESS. VENT ALARMS ON AND FUNCTIONING.
[2018-12-27] MEDS: NACL 0.9% 1,000 ML IV SCH (17:36)
--- NOTE | 2018-12-27 18:25 | NUR ---
DR. LUNSFORD AT BED SIDE. UPDATED PT'S CONDITION.
--- NOTE | 2018-12-27 19:05 | NUR ---
PATIENT ON VENT SETTINGS OF AC: RATE 12,VT 450,PEEP5, FIO2 35%. E.T.TUBE SIZE 7.5, AT 21 CM AT THE PATIENTS TEETH. TUBE SECURED AND PATENT. VENT CONNECTED TO RED PLUG OUTLET. ALARMS ON VENT ON & AUDIBLE. AMBU BAG AT PATIENTS BEDSIDE. WILL CONTINUE TO MONITOR PATIENT.
--- NOTE | 2018-12-27 19:15 | NUR ---
REPORT GIVEN AT BEDSIDE BY DAY NURSE. PATIENT SEDATED WITH VERSED RUNNING AT 2MG/HR AND FENTANYL 57.4MCG/HR. DRY WEIGHT OF 57 KG. RASS-3. VSS 103/[id number]%-98.3-CVP 7. FI02 35 VT 450-12-FLOW 40-PEEP 5. NO SOB. SKIN COLOR PINK, WARM AND DRY. CATARACTS IN LEFT EYE. RIGHT EYE PERRL SLUGGISH PUPIL. SKIN INTACT ON FACE. 7.5 TUBE. 21 TO TEETH. R IJ CENTRAL LINE INTACT AND PATENT WITH NS RUNNING AT 100/HR. SR-ST ON MONITOR. CLEAR LUNG SOUNDS HEARD BILATERALLY AND SYMMETRICAL. GTUBE CLEAN AND INTACT. NO RESIDUAL. BOWEL SOUNDS PRESENT IN ALL 4 QUADRANTS. PATIENT BOOKER INTACT WITH URINE DARK KONSTANTIN WITH NO SEDIMENT. RECTAL BAG INTACT WITH LIQUID BROWN STOOL PRESENT. PERIPHERAL PULSES PRESENT IN ALL 4 EXTREMITIES WITH PITTING EDEMA ON BOTH TOP OF HANDS 2+. SKIN INTACT ON FEET WITH HEEL PROTECTORS IN PLACE. PATIENT HOB 30 DEGREES. SIDE RAILS UP. CALL LIGHT WITHIN REACH. SAFETY PRECAUTIONS IN PLACE AND BED IN LOWEST POSITION. PATIENT STABLE AT THIS TIME. RT IN ROOM AT CHANGE OF SHIFT. Addendum: 12/27/18 at 2353 by Lois Calvert RN RASS -2
--- NOTE | 2018-12-27 19:23 | NUR ---
BED SIDE REPORT GIVEN TO NIGHT NURSE. PT CURRENTLY ON FENTANYL DRIP @57.4 MCG/HR AND VERSED DRIP @2ML/HR. DRY WEIGHT 57 KG. RASS -2. ON GT FEEDING RATE CURRENTLY AT 20ML/HR. PT HOB ELEVATED TO 30 DEGREES. BED KEPT TO THE LOWEST. CALL LIGHT IN REACH.
[2018-12-27] MEDS: metroNIDAZOLE 500 MG/NS PREMIX 100 ML IV SCH (20:37)
--- NOTE | 2018-12-27 23:30 | NUR ---
DR. MENEZES GIVEN REPORT/UPDATES AT PT ROOM
--- NOTE | 2018-12-27 23:52 | NUR ---
UPDATE GIVEN TO DR. LUNSFORD AT PT ROOM. WILL F/U ON NEW ORDERS.
[2018-12-28] VITALS (106 sets, daily range): BP systolic 56–226; BP diastolic 23–75
--- NOTE | 2018-12-28 00:10 | NUR ---
ORAL CARE GIVEN AND PT. REPOSITIONED.
[2018-12-28] MEDS: VANCOMYCIN 500 MG VIAL PO SCH ×4 (00:17→17:08)
[2018-12-28] MEDS: PIPER/TAZO 2.25GM/D5W PREMIX 50 ML IV SCH ×2 (00:17→05:45)
[2018-12-28] MEDS: Z-GUARD PASTE TP SCH ×2 (00:18→13:41)
[2018-12-28] MEDS: NACL 0.9% IRR 250 ML BOTTLE IR SCH ×2 (00:18→12:50)
[2018-12-28] MEDS ORDERED: NACL 0.9% 1,000 ML IV ONE (00:35)
--- NOTE | 2018-12-28 01:45 | NUR ---
RT IN ROOM. UPDATE ON PATIENT STATUS. TO GIVE BOLUS NS 1,000 PER MD ORDERS. VSS. AFEBRILE.
--- NOTE | 2018-12-28 02:00 | NUR ---
PT REPOSITIONED. VSS. WILL CONTINUE TO MONITOR
--- NOTE | 2018-12-28 03:08 | NUR ---
UPDATED DR. LUNSFORD ON PATIENT STATUS. VSS. TOLERATED BOLUS WELL. NO SOB. WILL CONTINUE TO MONITOR
[2018-12-28] MEDS: NACL 0.9% 1,000 ML IV SCH ×2 (03:36→13:41)
[2018-12-28] MEDS: metroNIDAZOLE 500 MG/NS PREMIX 100 ML IV SCH ×3 (04:36→20:34)
--- NOTE | 2018-12-28 06:00 | NUR ---
RT IN PATIENT ROOM. ADMINISTERED MEDICATIONS ORDERED. PT TOLERATED WELL. NO SOB. WILL CONTINUE TO MONITOR
[2018-12-28] MEDS: fentaNYL 1 MG in NACL 0.9% 80 ML IV PRN (06:57)
[2018-12-28 07:01] LABS: HEMATOCRIT 37.4 % (36-48); HEMOGLOBIN 11.3 g/dL (12.0-16.0); MEAN CORPUSCULAR HEMOGLOBIN 31 pg (27-31); MEAN CORPUSCULAR HGB CONC 30 g/dL (33-37); MEAN CORPUSCULAR VOLUME 101.7 fL (80-94); RED BLOOD CELL COUNT(AUTO) 3.68 MIL/uL (4.20-5.40); RED CELL DISTRIBUTION WIDTH 16.6 % (11.6-13.7)
--- NOTE | 2018-12-28 07:05 | NUR ---
RECEIVED BEDSIDE REPORT FROM GEOCHEMICAL MANAGER RN, HEIDE, FOR CONTINUITY OF CARE. PATIENT IS SEDATED WITH FENTANYL AND VERSED, RASS -2, DRY WEIGHT OF 57KG. PATIENT SKIN IS NOT INTACT, INCONTINENT DERMATITIS TO PERIANAL AREA, SKIN IS COOL AND DRY, SHE HAS HEEL PROTECTORS IN PLACE AND SACROCOCCYX DRESSING IN PLACE FOR PREVENTATIVE. PATIENT IS ETT TO VENT, SETTINGS ARE AC MODE, FIO2 35%, VT 450, PEEP 5. PATIENT IS ST ON MONITOR, FLACC 0. PATIENT HAS GTUBE TO FEEDING IN PLACE. SHE HAS BOOKER CATHETER IN PLACE. HOB IS 35 DEGREES, BED LOCKED IN LOW POSITION, SIDE RAILS UP 3X. SAFETY PRECAUTIONS AND ALARMS ASSESSED AND ENFORCED. NO SIGNS OF DISTRESS NOTED. WILL CONTINUE TO MONITOR
[2018-12-28] MEDS: ALBUTEROL SULFATE/IPRATROPIU 3 ML SOL IH SCH ×3 (07:24→20:08)
[2018-12-28] MEDS: ACETYLCYSTEINE 10% (100 MG/ML) 100 MG/ML VIAL INH SCH (07:24)
--- NOTE | 2018-12-28 07:34 | NUR ---
RECEIVED INTUBATED PT WITH A 7.5 ETT SECURED @21 TEETH/GUM ON VENT. SETTINGS AC/VC 12, VT 450, PEEP 5 AND FIO2 35%THERE IS NOT BITING OR KINKING OF ETT. PT IS SEDATED AT THIS TIME NOT IN ANY DISTRESS. ETT IS SECURE WITH ANCHOR FAST DEVICE AND A PATENT AIRWAY. PT HAS ACTIVE GAG REFLEX WHEN SUCTIONED. VENT IS PLUGGED INTO A RED OUTLET WITH ALARMS ON AND FUNCTIONING. AMBU BAG IS PRESENT NEAR BEDSIDE. WILL CONTINUE TO MONITOR.
--- NOTE | 2018-12-28 07:54 | NUR ---
DR. SALAS AND RESIDENT PHYSICIANS AT BEDSIDE.
[2018-12-28 08:21] LABS: PLATELET COUNT (AUTO) 63 K/uL (140-450); WHITE BLOOD COUNT (AUTO) 66.9 K/uL (4.8-10.8)
[2018-12-28 08:22] LABS: LYMPHOCYTES % (MANUAL) 2 % (20-46); METAMYELOCYTES % 2 % (0-0); MONOCYTES % (MANUAL) 3 % (5-12)
[2018-12-28] MEDS: FERROUS SULFATE 300 MG/5 ML UDC GT SCH (08:58)
[2018-12-28] MEDS: ASCORBIC ACID 500 MG/5 ML ORASYR GT SCH (08:59)
[2018-12-28] MEDS: PANTOPRAZOLE 40 MG INJ VIAL IVP SCH ×2 (08:59→20:34)
[2018-12-28] MEDS: DONEPEZIL 10 MG TAB PO SCH (08:59)
[2018-12-28] MEDS: LACTOBACILLUS RHAMNOSUS GG 1 EACH CAP PO SCH (08:59)
[2018-12-28] MEDS: NYSTATIN 500 MU/5 ML UDC PO SCH ×4 (08:59→20:34)
[2018-12-28] MEDS: SODIUM PHOS / POTASSIUM PHOS 1 PKT PDR GT SCH (09:00)
--- NOTE | 2018-12-28 09:28 | NUR ---
BEDSIDE AND AWARE OF PT IRRITABILITY AND TACHYPNEA. NURSE BEDSIDE AWARE OF PT STATUS. WILL CONTINUE TO MONITOR.
[2018-12-28] MEDS: MIDAZOLAM MDV 50 MG in NACL 0.9% 40 ML IV PRN (09:32)
[2018-12-28] MEDS ORDERED: fentaNYL 1 MG in NACL 0.9% 80 ML IV PRN (09:45)
[2018-12-28] MEDS ORDERED: MIDAZOLAM MDV 50 MG in NACL 0.9% 40 ML IV PRN (09:45)
--- NOTE | 2018-12-28 09:46 | NUR ---
PT TACHYPNEIC PHYSICIAN AWARE. PT HAS SLIGHT REDNESS/BREAKDOWN ON MIDDLE OF UPPER LIP. ETT MOVED FROM RIGHT TO LEFT AVOIDING SITE.
[2018-12-28 09:49] LABS: PROTHROMBIN TIME 9.2 secs (10.8-13.4)
--- NOTE | 2018-12-28 09:52 | NUR ---
DR. MURPHY AT BEDSIDE,UPDATED ON PATIENT'S CONDITION. STATES TO CHANGE BOOKER AND SHE KEEP PATIENT'S RASS AT -3 DUE TO PATIENT BEING TACHYPNEIC.
[2018-12-28] MEDS ORDERED: FUROSEMIDE 20 MG/2 ML VIAL IVP SCH (10:03)
--- NOTE | 2018-12-28 10:04 | NUR ---
CHANGED PATIENT'S BOOKER CATHETER, 5ML OF CLOUDY YELLOW URINE NOTED.
[2018-12-28] MEDS ORDERED: DEXTROSE 50% 50 ML SYR IVP PRN ×2 (10:05→20:50)
[2018-12-28] MEDS ORDERED: INSULIN LISPRO SLIDING SCALE 100 UNITS/ML VIAL SUBQ PRN (10:05)
[2018-12-28 10:45] LABS: ALBUMIN 0.8 g/dL (3.4-5.0); BILIRUBIN,DIRECT 0.8 mg/dL (0.0-0.3)
[2018-12-28] MEDS: CEFEPIME 1,000 MG in DEXTROSE 5% 50 ML IV SCH (10:59)
[2018-12-28 11:11] LABS: ANION GAP 24.1 (8-16); CARBON DIOXIDE 13.3 mmol/L (21-32); CHLORIDE 105 mmol/L (98-107); CREATININE 1.8 mg/dL (0.6-1.3); GLUCOSE 181 mg/dL (74-106); POTASSIUM 5.4 mmol/L (3.5-5.1); SODIUM SERUM 137 mmol/L (136-145)
[2018-12-28 11:12] LABS: MAGNESIUM 2.6 mg/dL (1.8-2.4)
[2018-12-28 11:13] LABS: UREA NITROGEN, BLOOD 64 mg/dL (7-18)
[2018-12-28] MEDS ORDERED: DEXTROSE 50% 50 ML SYR IVP ONE (11:30)
[2018-12-28] MEDS ORDERED: INSULIN REGULAR, HUMAN 100 UNIT/ML VIAL SUBQ SCH (11:34)
[2018-12-28] MEDS ORDERED: INSULIN REGULAR, HUMAN 100 UNIT/ML VIAL IV SCH (11:44)
[2018-12-28] MEDS: BLOOD GLUCOSE MONITORING 1 DEV DEV FS SCH ×3 (12:09→21:16)
[2018-12-28] MEDS ORDERED: NOREPINEPHRINE 4 MG/4 ML VIAL IV ONE ×2 (12:20→21:50)
[2018-12-28] MEDS: NOREPINEPHRINE 8 MG in DEXTROSE 5% 250 ML IV PRN (12:40)
--- NOTE | 2018-12-28 13:52 | NUR ---
PATIENT'S SON AND DAUGHTER IN LAW AT BEDSIDE, UPDATED ON PATIENT'S CONDITION. DR. MURPHY IS HERE TO SPEAK WITH THEM.
[2018-12-28] MEDS ORDERED: NACL 0.9% 1,000 ML IV SCH (14:30)
[2018-12-28] MEDS ORDERED: VANCOMYCIN 750 MG in DEXTROSE 5% 250 ML IV SCH (15:00)
[2018-12-28] MEDS: ALBUTEROL SULFATE/IPRATROPIU 3 ML SOL IH PRN (15:45)
--- NOTE | 2018-12-28 15:53 | NUR ---
PT REMAINS TACHYPNEIC PRN BREATHING TX ADMINISTERED. ETT REMAINS SECURE WITH A PATENT AIRWAY. FAMILY IS BEDSIDE. WILL CONTINUE TO MONITOR.
--- NOTE | 2018-12-28 16:05 | NUR ---
PATIENT'S FAMILY IS HERE, DR. MURPHY IS GOING TO SPEAK WITH THEM REGARDING CODE STATUS
--- NOTE | 2018-12-28 17:09 | NUR ---
DR. TUCKER IS HERE TO SEE PATIENT, UPDATED ON PATIENT'S CONDITION. WILL FOLLOW UP ON ANY ORDERS
--- NOTE | 2018-12-28 17:33 | NUR ---
PT REMAINS ON DOCUMENTED VENT SETTINGS. PT REMAINS TACHYPNEIC BEDSIDE AWARE OF PT STATUS. VENT ALARMS ON AND FUNCTIONING. ETT IS SECURE WITH A PATENT AIRWAY.
[2018-12-28] MEDS ORDERED: FUROSEMIDE 100 MG in DEXTROSE 5% 100 ML IV SCH (17:40)
--- NOTE | 2018-12-28 19:10 | NUR ---
ENDORSED CONTINUITY OF CARE TO PRINT PRESS OPERATOR DUNG JOHN.
--- NOTE | 2018-12-28 19:30 | NUR ---
RECEIVED REPORT FROM MORNING RN, MIKE, FOR CONTINUITY OF CARE. VS NOT STABLE AT THIS TIME. AFEBRILE. UNABLE TO MAKE NEEDS KNOWN OR FOLLOW COMMANDS. RASS -3. PT SEDATED WITH VERSED AT 3MG/HR AND FENTANYL AT 57.4MCG/HR. ETT TO VENT WITH VENT SETTINGS: FIO2 35%, TV 450, R12, AND PEEP 5. LUNG SOUNDS DIMINISHED ALL THROUGH OUT. NO SOB NOTED. RESPIRATIONS ARE EVEN AND UNLABORED. S1+S2 HEARD. SR ON MONITOR. RECEIVED PT ON LEVOPHED AT 15MCG. CURRENTLY BP IS LOW. CVP ZEROED. CURRENT READING 7MMHG. ABDOMEN ROUND, SOFT AND NONDISTENDED. BS ACTIVE IN ALL QUADRANTS. PT HAS GTUBE IN PLACE. RESIDUAL 180ML. FEEDING KEPT HELD AT THIS TIME. GTUBE DRESSING IS CLEAN AND DRY. PT HAS RECTAL TUBE IN PLACE. BAG CURRENTLY HAS SMALL AMOUNT OF OUTPUT. LIQUID IN CONSISTENCY AND LIGHT BROWN IN COLOR. BOOKER CATHETER IS IN PLACE. HAS MINIMAL OUTPUT AT THIS TIME. DRAINING CLEAR AND YELLOW URINE. PT HAS SCD IN PLACE. PT HAS RIGHT IJ CENTRAL LINE WITH DRESSING THAT IS CLEAN, DRY AND INTACT. PT HAS NS RUNNING 100ML/HR. HOB KEPT AT 30 DEGREES. ALL SAFETY PRECAUTIONS ARE IN PLACE. BED AT LOW POSSIBLE POSITION. WILL CONTINUE TO MONITOR PT.
[2018-12-28 20:08] LABS: CHLORIDE 104 mmol/L (98-107); CREATININE 2.2 mg/dL (0.6-1.3); GLUCOSE 168 mg/dL (74-106); SODIUM SERUM 134 mmol/L (136-145)
--- NOTE | 2018-12-28 20:08 | NUR ---
FOUND PATIENT ON [facility] VENT SETTINGS OF AC: RATE 12, VT 450, PEEP5, FIO2 35% WITH A E.T.TUBE SIZE 7.5 SECURED AT 21 AT THE TEETH. TUBE WAS PATENT. ALARMS ON & AUDIBLE. VENT CONNECTED TO RED PLUG OUTLET. AMBU BAG AT BEDSIDE. WILL CONTINUE TO MONITOR THE PATIENT.
[2018-12-28 20:14] LABS: CARBON DIOXIDE 6.2 mmol/L (21-32); UREA NITROGEN, BLOOD 64 mg/dL (7-18)
[2018-12-28 20:15] LABS: ANION GAP 30.8 (8-16)
--- NOTE | 2018-12-28 20:45 | NUR ---
PHONE CALL TO PTS SON RICHARD([phone]); DR GATES SPOKE WITH PTS SON.CONSENT FOR HD CATHETER INSERTION AND HEMODIALYSIS OBTAINED.WITNESSED BY ABBY JOHN
[2018-12-28] MEDS ORDERED: SODIUM BICARBONATE 8.4% 100 MEQ in NACL 0.9% 1,000 ML IV SCH (20:50)
[2018-12-28] MEDS ORDERED: SODIUM BICARBONATE 8.4% 50 MEQ in NACL 0.9% 1,000 ML IV SCH (20:50)
[2018-12-28] MEDS ORDERED: INSULIN REGULAR, HUMAN 100 UNIT/ML VIAL IV ONE (20:50)
--- NOTE | 2018-12-28 21:15 | NUR ---
DR. VU AT BEDSIDE TO SEE PT. UPDATED HIM REGARDING PT'S CONDITION. RECEIVED NEW ORDERS.
[2018-12-28] MEDS ORDERED: SODIUM BICARBONATE 8.4% PFS 50 MEQ/50 ML SYR IVP ONE ×2 (21:20)
[2018-12-28] MEDS: NOREPINEPHRINE 16 MG in DEXTROSE 5% 250 ML IV PRN (21:45)
[2018-12-28] MEDS ORDERED: CALCIUM CHLORIDE 10% 100 MG/ML SYR IVP ONE ×2 (21:55→22:45)
[2018-12-28] MEDS: SODIUM BICARBONATE 8.4% 150 MEQ in DEXTROSE 5% 1,000 ML IV SCH (21:57)
--- NOTE | 2018-12-28 21:59 | NUR ---
CALLED RADIOLOGY TO NOTIFY THAT DR. KEARNS WILL BE COMING IN THE UNIT AND US TECH IS NEEDED TO INDRA CATHETER PLACEMENT.
--- NOTE | 2018-12-28 22:00 | NUR ---
DR. KEARNS IN THE UNIT FOR INDRA CATHETER PLACEMENT.
--- NOTE | 2018-12-28 22:34 | NUR ---
LEFT SUBCLAVIAN INDRA CATHETER SUCCESSFULLY PLACED BY DR. KEARNS AT BEDSIDE. VS REMAINS STABLE AT THIS TIME. JONES ALREADY AWARE OF DIALYSIS ORDER.
--- NOTE | 2018-12-28 22:40 | NUR ---
CLARIFIED THE LASIX DRIP ORDER WITH DR. GATES WHO IS IN THE UNIT AT THIS TIME. PER DR. GATES NO NEED FOR LASIX DRIP AT THIS TIME D/T PT WILL HAVE DIALYSIS.
[2018-12-28] MEDS ORDERED: LORazepam 2 MG/ML VIAL IM/IVP PRN (22:45)
[2018-12-28] MEDS ORDERED: HYDROcodone/APAP 5/325 MG 1 TAB TAB PO PRN (22:45)
[2018-12-28] MEDS ORDERED: MORPHINE SULFATE 2 MG/ML SYR IVP PRN (22:45)
--- NOTE | 2018-12-28 23:08 | NUR ---
PEDIATRIC CARDIOLOGIST AT BEDSIDE AT THIS TIME.
[2018-12-28] MEDS ORDERED: ALBUMIN HUMAN 25% 100 ML IV ONE (23:55)
[2018-12-29] VITALS (58 sets, daily range): BP systolic 82–157; BP diastolic 28–76
[2018-12-29] MEDS: VANCOMYCIN 500 MG VIAL PO SCH ×3 (00:30→12:00)
[2018-12-29] MEDS: NACL 0.9% IRR 250 ML BOTTLE IR SCH ×2 (01:07→13:24)
[2018-12-29] MEDS: Z-GUARD PASTE TP SCH (01:08)
[2018-12-29] MEDS ORDERED: ALBUMIN HUMAN 25% 100 ML IV ONE ×4 (01:10→01:40)
--- NOTE | 2018-12-29 01:15 | NUR ---
CHECKED GTUBE RESIDUAL AT THIS TIME. ASPIRATED DARK RED, THIN LIQUID FROM GTUBE. GTUBE DRESSING COMPLETELY WET. CHANGED DRESSING. DR. LUCIO NOTIFIED REGARDING THE GTUBE RESIDUAL ASPIRATED. PER DR. LUCIO DRAIN THE GTUBE VIA GRAVITY.
--- NOTE | 2018-12-29 01:20 | NUR ---
CONNECTED GTUBE TO A COLLECTION BAG. IMMEDIATELY DRAINED DARK RED LIQUID FROM GTUBE. WILL FURTHER MONITOR.
--- NOTE | 2018-12-29 02:01 | NUR ---
PT STILL HAVING HEMODIALYSIS AT THIS TIME. STILL ON LEVOPHED 16MG/D5W 250 ML AT 30MCG. WILL CONTINUE TO MONITOR VS.
--- NOTE | 2018-12-29 02:20 | NUR ---
PT FINISHED HEMODIALYSIS. PER CANINE SERVICE TEACHER, NO VOLUME WAS PULLED. HEPARIN NOT GIVEN BY CANINE SERVICE TEACHER DUE TO LOW PLATELETS.
--- NOTE | 2018-12-29 03:56 | NUR ---
GTUBE STILL CONNECTED TO COLLECTION BAG. DARK RED TINGED OUTPUT NOTED FROM GTUBE. GTUBE DRESSING DRY AT THIS TIME. NO FURTHER BM NOTED. BP STABLE AT THIS TIME. WILL START TITRATING LEVOPHED. NO BLEEDING NOTED FROM THE INDRA CATHETER INSERTED EARLIER DURING THE SHIFT. RASS -3. PT REMAINS ON VERSED AND FENTANYL DRIP. RESPIRATIONS ARE EVEN AND UNLABORED. ORAL CARE PROVIDED TO PT. ALL SAFETY PRECAUTIONS ARE IN PLACE.
[2018-12-29] MEDS: metroNIDAZOLE 500 MG/NS PREMIX 100 ML IV SCH ×2 (05:04→13:33)
--- NOTE | 2018-12-29 06:16 | NUR ---
DR. BARAJAS AT BEDSIDE TO SEE PT. UPDATED HIM REGARDING PT'S CONDITION.
--- NOTE | 2018-12-29 06:17 | NUR ---
CALLED [facility] TO NOTIFY THAT THERE IS A DIALYSIS ORDER FOR PT FOR TODAY.
[2018-12-29] MEDS: SODIUM BICARBONATE 8.4% 150 MEQ in DEXTROSE 5% 1,000 ML IV SCH (06:32)
[2018-12-29 06:46] LABS: ANION GAP 27.7 (8-16); CARBON DIOXIDE 17.7 mmol/L (21-32); CHLORIDE 99 mmol/L (98-107); CREATININE 1.6 mg/dL (0.6-1.3); GLUCOSE 136 mg/dL (74-106); POTASSIUM 4.4 mmol/L (3.5-5.1); SODIUM SERUM 140 mmol/L (136-145); UREA NITROGEN, BLOOD 35 mg/dL (7-18)
[2018-12-29] MEDS: BLOOD GLUCOSE MONITORING 1 DEV DEV FS SCH ×2 (06:59→11:30)
--- NOTE | 2018-12-29 07:15 | NUR ---
RECEIVED CHANGE OF SHIFT BEDSIDE REPORT FROM JOE. PATIENT SEDATED. LUNG SOUNDS CLEAR IN ALL AREAS. PATIENT ORALLY INTUBATED WITH 7.5 ETT AT 21 CM ON TOOTH/GUM LINE. PEEP:5, FLOW: 55, AC: 12, TV: 450, FIO2: 35%. NSR ON NEUROPSYCHOLOGY MEDICAL CONSULTANT. 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 PITTING EDEMA OF 4MM PRESENT ON BILATERAL UPPER ARMS AND HANDS. PITTING EDEMA OF 4MM ON RIGHT FOOT. ON LEVOPHED OF 21.99 MCG/MIN, FENTANYL 57.5 MCG/H, AND VERSED 3 MG/H. WITH RASS OF -3. CVP OF 9. PATIENT'S DRY WEIGHT IS 57KG. G-TUBE HAS SLIGHT REDNESS AROUND INSERTION SITE. PATIENT CURRENTLY HAS LEFT SUBCLAVIAN DIALYSIS PORT BED LEFT IN LOW POSITION WITH CALL LIGHT IN REACH.
[2018-12-29] MEDS: ALBUTEROL SULFATE/IPRATROPIU 3 ML SOL IH SCH ×2 (07:21→13:22)
--- NOTE | 2018-12-29 07:45 | NUR ---
SPOKE WITH DR. TOLEDO WHILE HE WAS MAKING ROUNDS WITH HIS RESIDENT GROUP. INFORMED HIM OF PATIENT'S HIGH G-TUBE RESIDUALS WITH DARK BROWN APPEARANCE. ALSO INFORMED HIM OF PATIENT'S LOW PLATELET COUNT OF 17. WILL HAVE BLOOD REDRAWN TO CONFIRM LOW PLATELET RESULT.
--- NOTE | 2018-12-29 08:33 | NUR ---
ABG RESULTS GIVEN TO WILL PAGE REGARDING RESULTS.
[2018-12-29] MEDS: NOREPINEPHRINE 16 MG in DEXTROSE 5% 250 ML IV PRN (08:57)
[2018-12-29] MEDS: FERROUS SULFATE 300 MG/5 ML UDC GT SCH (09:02)
[2018-12-29] MEDS: ASCORBIC ACID 500 MG/5 ML ORASYR GT SCH (09:02)
[2018-12-29] MEDS: NYSTATIN 500 MU/5 ML UDC PO SCH (09:03)
[2018-12-29] MEDS: PANTOPRAZOLE 40 MG INJ VIAL IVP SCH (09:03)
[2018-12-29] MEDS: SODIUM PHOS / POTASSIUM PHOS 1 PKT PDR GT SCH (09:04)
[2018-12-29] MEDS: LACTOBACILLUS RHAMNOSUS GG 1 EACH CAP PO SCH (09:04)
[2018-12-29] MEDS: DONEPEZIL 10 MG TAB PO SCH (09:04)
[2018-12-29] MEDS: SCOPOLAMINE 1.5 MG/72 HR PATCH TD SCH (09:07)
--- NOTE | 2018-12-29 09:22 | NUR ---
PAGED REGARDING ABG RESULTS.
[2018-12-29 09:23] LABS: HEMATOCRIT 27.9 % (36-48); HEMOGLOBIN 8.5 g/dL (12.0-16.0); MEAN CORPUSCULAR HEMOGLOBIN 32 pg (27-31); MEAN CORPUSCULAR HGB CONC 30 g/dL (33-37); MEAN CORPUSCULAR VOLUME 104.6 fL (80-94); RED BLOOD CELL COUNT(AUTO) 2.66 MIL/uL (4.20-5.40); RED CELL DISTRIBUTION WIDTH 16.5 % (11.6-13.7)
[2018-12-29] MEDS: CEFEPIME 1,000 MG in DEXTROSE 5% 50 ML IV SCH (09:27)
--- NOTE | 2018-12-29 09:51 | NUR ---
CALL BACK FROM DR MICHELLE TUCKER REVIEWED ABG SAMPLE REPORT NO NEW ORDERS I WILL ENDORSE TO Olga SKINNER RCP
[2018-12-29 09:59] LABS: PLATELET COUNT (AUTO) 29 K/uL (140-450)
[2018-12-29 10:00] LABS: CORRECTED WHITE BLOOD COUNT 48.4 K/uL (4.5-11.0); EOSINOPHILS % (MANUAL) 1 % (0-4); LYMPHOCYTES % (MANUAL) 10 % (20-46); MONOCYTES % (MANUAL) 4 % (5-12)
--- NOTE | 2018-12-29 10:00 | NUR ---
BLOOD WAS REDRAWN TO CONFIRM LOW PLATELET COUNT. NEW PLATELET RESULT OF [address] BARAJAS WAS INFORMED OF IT. I ALSO INFORMED DR. BARAJAS NEW ABG RESULTS WHICH I RECEIVED VERBALLY FROM RT WHITE.
[2018-12-29 10:04] LABS: WHITE BLOOD COUNT (AUTO) 53.7 K/uL (4.8-10.8)
[2018-12-29] MEDS ORDERED: PHARMACY COMMENTS MC SCH (12:00)
[2018-12-29] MEDS ORDERED: ACETAMINOPHEN 325 MG TAB PO SCH (12:00)
--- NOTE | 2018-12-29 12:03 | NUR ---
WOUND CARE RE-EVALUATION NOTE: -MILLIE-ANAL SEVERE IAD 1.5X2X0.1, WOUND BED IS 100% GRANULATING, WOUND EDGE MACERATED, MILLIE WOUND SKIN DENUDED WITH PURPLE COLOR INDICATED FURTHER DAMAGE, RECTAL TUBE IN PLACE AND CAUSE IRRITATION TO WOUND BED. -UPPER LIPS 2 SMALL OPEN AREAS WITH LARGEST MEASURE 0.5X0.5CM SUPERFICIAL DEPTH, WOUND BED IS CLEAN, PER CHARGE NURSE PT. BITE HER LIPS -GT SITE PER-STOMA SKIN REDNESS SKIN INTACT RECOMMENDATIONS: -CLEANSE R/L BUTTOCKS IAD WITH SOAP AND WATER, PAT DRY, APPLY SKIN PREP AND COVER WITH HYDROCOLLOID DRESSING QD PRN AND PLEASE CHECK FOR PLACEMENT QSHIFT -PLEASE CUSHION AND LIFT UPPER LIPS WITH 2X2 GUAZES, SECURED WITH PAPER TAPE CHANGE PRN IF SOILING, PLEASE CHECK FOR PLACEMENT QSHIFT -CLEANSE GT SITE REDNESS WITH NS, PAT DRY, APPLY SKIN PREP AND COVER WITH EKING RING PRN AND COVER WITH DRY DRESSING. PLEASE CHECK FOR PLACEMENT Q SHIFT. DR. BARAJAS AT BED SIDE DURING ASSESSMENT NOTIFIED OF CHANGE OF SKIN CONDITION, VERBAL ORDER RECEIVED.
--- NOTE | 2018-12-29 12:10 | NUR ---
WOUND CARE AND EVALUATION DONE BY WOUND NURSE AND TWO RNS. INCONTINENT DERMATITIS NOTED TO PERINEAL AREA. WOUND PICTURES TAKEN BY UNABLE TO PRINT AT THIS TIME DUE TO PRINTER DEFECT.
--- NOTE | 2018-12-29 12:55 | NUR ---
DR. TUCKER HERE TO SEE AND EXAMINE PT.
[2018-12-29] MEDS ORDERED: HYDROCOLLOID DRESSING TP SCH (13:00)
[2018-12-29] MEDS ORDERED: GAUZE TP SCH (13:00)
--- NOTE | 2018-12-29 13:27 | NUR ---
PT SUCTIONED WITH NO ACTIVE GAG REFLEX AT THIS TIME. WILL NOTIFY NURSE. HR BRADYCARDIC AT MID TO HIGH 40'S. WILL CONTINUE TO MONITOR.
--- NOTE | 2018-12-29 13:38 | NUR ---
SON AND DAUGHTER IN LAW AT BEDSIDE. EXCHANGE ADMINISTRATOR SHOWS AGONAL RHYTHM, NO PULSES, NO SPONTANEOUS RESPIRATION, CODE BLUE CALLED. (SEE CODE BLUE SHEET)
--- NOTE | 2018-12-29 13:44 | NUR ---
CABINET INSTALLER SHOWS ASYSTOLE. DIP TUBE ASSEMBLER MACHINE PULSES. NO SPONTANEOUS RESP. PUPILS DILATED. NON REACTIVE. DR. GUNN SPOKE TO PT'S SON AND DAUGHTER IN LAW. PRONOUNCED BY DR. GUNN.
--- NOTE | 2018-12-29 14:05 | NUR ---
BODY RELEASED BY [facility].
[2018-12-29] MEDS ORDERED: VANCOMYCIN 500 MG in DEXTROSE 5% 100 ML IV SCH (15:00)
--- NOTE | 2018-12-29 15:38 | NUR ---
REPORT GIVEN TO HEALTH SERVICES ADMINISTRATOR'S OFFICE, DEPUTY GLENIS. OK TO RELEASE BODY TO MORTUARY. CASE # [id number].
--- NOTE | 2018-12-29 15:45 | NUR ---
[facility] CALLED. WILL BE HERE IN 2 HRS. FAMILY MADE AWARE.
--- NOTE | 2018-12-29 15:51 | NUR ---
12/29/18 RD FOLLOW UP COMPLETED PLEASE REFER TO NUTRITION ASSESSMENT UNDER CARE ACTIVITY FOR ESTIMATED NUTRITIONAL NEEDS. 1. CONTINUE NPO MEDICALLY NECESSARY 2. IF PATIENT IMPROVES, RESUME JEVITY 1.2 AT 60 ML/HR WITH PROSOURCE QD -THIS WILL PROVIDE 1788 KCAL, AND 95 GM OF PROTEIN, WHICH MEETS 100% OF ESTIMATED NUTRITION NEEDS 3.CONTINUE WITH FREE WATER FLUSH [address] TO FOLLOW-UP 2-3 DAYS, HIGH RISK MADELEINE CAMACHO RD
--- NOTE | 2018-12-29 16:00 | NUR ---
POST MORTEM CARE DONE.
--- NOTE | 2018-12-29 16:30 | NUR ---
FAMILY AT BEDSIDE.
--- NOTE | 2018-12-29 17:05 | NUR ---
DR. REYES CONFERENCE INTERPRETER FOR DR. PAZ. LEFT MESSAGE WITH EXCHANGE THAT PT. HAS .
--- NOTE | 2018-12-29 18:40 | NUR ---
PATIENT PICKED UP BY [facility].
[2018-12-30 06:07] LABS: HEPATITIS A ANTIBODY IGM Negative (Negative); HEPATITIS B CORE AB TOTAL Negative (Negative); HEPATITIS B SURFACE ANTIBODY Reactive (.); HEPATITIS B SURFACE ANTIGEN Negative (Negative)
== END 2018-12-29 13:44 | disposition expired | DRG 207 ==
LOC: MED 21:24 → MTU 23:19 → MIC 12-22 14:15
PROVIDERS: ADMIT General Practice; ATTEND General Practice
PROC: 02HV33Z Insertion of Infusion Device into Superior Vena Cava, Percutaneous Approach (ICD-10-PCS; 2018-12-22)
PROC: B548ZZA Ultrasonography of Superior Vena Cava, Guidance (ICD-10-PCS; 2018-12-22)
PROC: 5A1955Z Respiratory Ventilation, Greater than 96 Consecutive Hours (ICD-10-PCS; 2018-12-24)
PROC: 0BH17EZ Insertion of Endotracheal Airway into Trachea, Via Natural or Artificial Opening (ICD-10-PCS; 2018-12-24)
PROC: 02H633Z Insertion of Infusion Device into Right Atrium, Percutaneous Approach (ICD-10-PCS; principal; 2018-12-28)
PROC: B244ZZZ Ultrasonography of Right Heart (ICD-10-PCS; 2018-12-28)
PROC: 5A1D70Z Performance of Urinary Filtration, Intermittent, Less than 6 Hours Per Day (ICD-10-PCS; 2018-12-28)
DX: J96.21 Acute and chronic respiratory failure with hypoxia (principal); A41.59 Other Gram-negative sepsis; J69.0 Pneumonitis due to inhalation of food and vomit; G93.41 Metabolic encephalopathy; N17.0 Acute kidney failure with tubular necrosis; E43 Unspecified severe protein-calorie malnutrition; R65.21 Severe sepsis with septic shock; K94.23 Gastrostomy malfunction; A04.72 Enterocolitis due to Clostridium difficile, not specified as recurrent; E87.1 Hypo-osmolality and hyponatremia; E87.2 Acidosis; B37.0 Candidal stomatitis; Z68.23 Body mass index [BMI] 23.0-23.9, adult; D32.9 Benign neoplasm of meninges, unspecified; D53.9 Nutritional anemia, unspecified; D69.59 Other secondary thrombocytopenia; E83.39 Other disorders of phosphorus metabolism; E83.42 Hypomagnesemia; E87.5 Hyperkalemia; E87.6 Hypokalemia; F02.80 Dementia in other diseases classified elsewhere, unspecified severity, without behavioral disturbance, psychotic disturbance, mood disturbance, and anxiety; G30.9 Alzheimer's disease, unspecified; I12.9 Hypertensive chronic kidney disease with stage 1 through stage 4 chronic kidney disease, or unspecified chronic kidney disease; K21.9 Gastro-esophageal reflux disease without esophagitis; K59.09 Other constipation; N18.9 Chronic kidney disease, unspecified; R13.10 Dysphagia, unspecified; Z16.11 Resistance to penicillins; Z86.73 Personal history of transient ischemic attack (TIA), and cerebral infarction without residual deficits; Z90.710 Acquired absence of both cervix and uterus; Z98.41 Cataract extraction status, right eye; Z66 Do not resuscitate; S31.839A Unspecified open wound of anus, initial encounter; X58.XXXA Exposure to other specified factors, initial encounter; Y93.89 Activity, other specified; Y92.89 Other specified places as the place of occurrence of the external cause; Y99.8 Other external cause status
CPT/HCPCS: 36415; 36600; 70450; 70470; 71045; 74018; 80048; 80053; 80076; 80202; 81001; 82140; 82150; 82272; 82607; 82728; 82746; 82803; 82948; 83036; 83540; 83605; 83690; 83735; 83880; 84100; 84132; 84436; 84443; 85025; 85045; 85379; 85384; 85610; 85730; 86704; 86706; 86708; 86709; 86803; 86886; 86900; 86901; 87040; 87070; 87081; 87086; 87186; 87205; 87340; 89220; 93005; 94002; 94003; 94640; 96365; 97110; 97161-GP; 99285; C9113; J0692; J0696; J1642; J1644; J1815; J1940; J2001; J2060; J2250; J2270; J2543; J2704; J2916; J3010; J3370; J3480; J3490; J7030; J7042; J7060; J7620; P9046; Q0092; Q9967